=== PATIENT | male | born 1930 | race Caucasian/White ===

== ENCOUNTER 2019-07-10 23:01 | Emergency (ER) | payer MEDICARE, OTHER ==
[2019-07-10 23:15] VITALS: BP 161/90; PULSE 76
--- NOTE | 2019-07-10 23:15 | EDM.PDOC ---
ED HPI GENERAL MEDICAL PROBLEM - General Chief Complaint: Cardiovascular Problem Stated Complaint: CHEST PAIN Time Seen by Provider: 07/10/19 23:07 Source of Information: Reports: Patient, EMS, Old Records History Limitations: Reports: No Limitations - History of Present Illness INITIAL COMMENTS - FREE TEXT/NARRATIVE: Bony comes into [facility] ED by EMS with a recent 2 hour hx of lower retrosternal chest pain just before 8:00 pm, while sitting in a chair. Pain was sharp, with some radiation overlying the L anterior chest, associated with some diaphoresis and SOB. There was no dizziness, cough, wheezing, palpitations, or nausea. There was some heartburn and gas, although he did not try to belch. EMS was summoned by his sister, and he was pain free by the time EMS arrived. He remains sxs free in the ED. - Related Data Allergies Allergy/AdvReac Type Severity Reaction Status Date / Time No Known Allergies Allergy Verified 07/10/19 23:11 Home Meds: Home Meds Aspirin [Adult Low Dose Aspirin EC] 81 mg PO DAILY 07/31/13 [History] Finasteride [Proscar] 5 mg PO DAILY 07/31/13 [History] Levothyroxine 200 mcg PO ACBRK 07/31/13 [History] Isosorbide Mononitrate [Imdur] 30 mg PO DAILY #30 tab.er 10/19/14 [Rx] Carboxymethylcellulose Sodium [Refresh Liquigel 1%] 1 drop EYEBOTH BEDTIME 11/12 [History] Carboxymethylcellulose Sodium [Refresh Tears 0.5%] 1 drop EYEBOTH 6X [History] Clopidogrel [Plavix] 75 mg PO DAILY 11/12/14 [History] Metoprolol Tartrate 25 mg PO BEDTIME 11/12/14 [History] Metoprolol Tartrate 50 mg PO DAILY 11/12/14 [History] ED ROS GENERAL - Review of Systems Review Of Systems: See Below Constitutional: Reports: No Symptoms HEENT: Reports: No Symptoms Respiratory: Reports: No Symptoms Cardiovascular: Reports: Chest Pain Endocrine: Reports: No Symptoms GI/Abdominal: Reports: Other (heartburn, gassy feeling) : Reports: No Symptoms Musculoskeletal: Reports: No Symptoms Skin: Reports: No Symptoms Neurological: Reports: No Symptoms Psychiatric: Reports: No Symptoms Hematologic/Lymphatic: Reports: No Symptoms Immunologic: Reports: No Symptoms ED EXAM, GENERAL - Physical Exam Exam: See Below Exam Limited By: No Limitations General Appearance: Alert, WD/WN, No Apparent Distress Eye Exam: Bilateral Eye: EOMI, Normal Inspection, PERRL Ears: Normal External Exam Nose: Normal Inspection Throat/Mouth: Normal Inspection, Normal Oropharynx Head: Normocephalic Neck: Normal Inspection, Non-Tender Respiratory/Chest: Lungs Clear, No Accessory Muscle Use Cardiovascular: Regular Rate, Rhythm, No Murmur Peripheral Pulses: 3+: Dorsalis Pedis (R) GI/Abdominal: Normal Bowel Sounds, Soft, Non-Tender, No Organomegaly, No Distention, No Mass (Male) Exam: Deferred Rectal (Males) Exam: Deferred Back Exam: Normal Inspection Extremities: Normal Inspection Neurological: Alert, Oriented, CN II-XII Intact, No Motor/Sensory Deficits Psychiatric: Normal Affect, Normal Mood Skin Exam: Warm, Dry, Intact, Normal Color, No Rash Lymphatic: No Adenopathy Course - Vital Signs Text/Narrative:: Bony remained stable in the ED awaiting results of tests. The ekg, cbc, cmp, and troponin I were all baseline. A digestive condition such as GERD is suspected. Last Recorded V/S: Last Vital Signs Temp 35.9 C 07/10/19 23:01 Pulse 76 07/10/19 23:01 Resp 18 07/10/19 23:01 BP 161/90 H 07/10/19 23:01 Pulse Ox 93 L 07/10/19 23:01 - Orders/Labs/Meds Orders: Active Orders 24 hr Category Date Time Status EKG Documentation Completion [RC] ASDIRECTED Care 07/10/19 23:21 Active EKG 12 Lead [EK] Routine Ther 07/10/19 23:20 Ordered Labs: Laboratory Tests 07/10/19 07/10/19 07/10/19 Range/Units 23:25 23:25 23:25 WBC 7.8 (4.5-12.0) X10-3/uL RBC 4.30 (4.30-5.75) x10(6)uL Hgb 13.4 L (13.5-17.8) g/dL Hct 38.6 (30.0-51.3) % MCV 89.9 (80-96) fL MCH 31.2 (27.7-33.6) pg MCHC 34.7 (32.2-35.4) g/dL RDW 12.2 (11.5-15.5) % Plt Count 202 (125-369) X10(3)uL MPV 8.4 (7.4-10.4) fL Neut % (Auto) 68.9 (46-82) % Lymph % (Auto) 18.4 (13-37) % [place] % (Auto) 10.0 (4-12) % Eos % (Auto) 2 (1.0-5.0) % Baso % (Auto) 1 (0-2) % Neut # (Auto) 5.4 (1.6-8.3) # Lymph # (Auto) 1.4 (0.6-5.0) # [place] # (Auto) 0.8 (0.0-1.3) # Eos # (Auto) 0.2 (0.0-0.8) # Baso # (Auto) 0.0 (0.0-0.2) # D-Dimer, Quantitative 0.38 (0.0-0.59) mg/LFEU Sodium 135 (135-145) mmol/L Potassium 4.2 (3.5-5.3) mmol/L Chloride 97 L (100-110) mmol/L Carbon Dioxide 28 (21-32) mmol/L BUN 26 H (7-18) mg/dL Creatinine 1.4 H (0.70-1.30) mg/dL Est Cr Clr Drug Dosing 35.96 mL/min Estimated GFR (MDRD) 48 L (>60) BUN/Creatinine Ratio 18.6 (9-20) Glucose 152 H (80-116) mg/dL Calcium 9.1 (8.6-10.2) mg/dL Total Bilirubin 0.3 (0.1-1.3) mg/dL AST 17 (5-25) IU/L ALT 22 (12-36) U/L Alkaline Phosphatase 76 (56-112) IU/L Troponin I (<0.017-0.056) ng/mL Total Protein 7.0 (6.0-8.0) g/dL Albumin 3.7 (3.2-4.6) g/dL Globulin 3.3 g/dL Albumin/Globulin Ratio 1.1 09/10/19 Range/Units 23:25 WBC (4.5-12.0) X10-3/uL RBC (4.30-5.75) x10(6)uL Hgb (13.5-17.8) g/dL Hct (30.0-51.3) % MCV (80-96) fL MCH (27.7-33.6) pg MCHC (32.2-35.4) g/dL RDW (11.5-15.5) % Plt Count (125-369) X10(3)uL MPV (7.4-10.4) fL Neut % (Auto) (46-82) % Lymph % (Auto) (13-37) % [place] % (Auto) (4-12) % Eos % (Auto) (1.0-5.0) % Baso % (Auto) (0-2) % Neut # (Auto) (1.6-8.3) # Lymph # (Auto) (0.6-5.0) # [place] # (Auto) (0.0-1.3) # Eos # (Auto) (0.0-0.8) # Baso # (Auto) (0.0-0.2) # D-Dimer, Quantitative (0.0-0.59) mg/LFEU Sodium (135-145) mmol/L Potassium (3.5-5.3) mmol/L Chloride (100-110) mmol/L Carbon Dioxide (21-32) mmol/L BUN (7-18) mg/dL Creatinine (0.70-1.30) mg/dL Est Cr Clr Drug Dosing mL/min Estimated GFR (MDRD) (>60) BUN/Creatinine Ratio (9-20) Glucose (80-116) mg/dL Calcium (8.6-10.2) mg/dL Total Bilirubin (0.1-1.3) mg/dL AST (5-25) IU/L ALT (12-36) U/L Alkaline Phosphatase (56-112) IU/L Troponin I < 0.017 L (<0.017-0.056) ng/mL Total Protein (6.0-8.0) g/dL Albumin (3.2-4.6) g/dL Globulin g/dL Albumin/Globulin Ratio Departure - Departure Time of Disposition: 00:06 Disposition: Home, Self-Care 01 Condition: Good Clinical Impression: GERD (gastroesophageal reflux disease) Forms: ED Department Discharge - Problem List & Annotations (1) GERD (gastroesophageal reflux disease) SNOMED Code(s): 542202098 Code(s): K21.9 - GASTRO-ESOPHAGEAL REFLUX DISEASE WITHOUT ESOPHAGITIS Status: Acute Current Visit: Yes Annotation/Comment:: Continue Pepcid bid and maintenance meds. Qualifiers: Esophagitis presence: without esophagitis Qualified Code(s): K21.9 - Gastro -esophageal reflux disease without esophagitis - Problem List Review Problem List Initiated/Reviewed/Updated: Yes - My Orders Last 24 Hours: My Active Orders 07/10/19 23:20 EKG 12 Lead [EK] Routine 07/10/19 23:21 EKG Documentation Completion [RC] ASDIRECTED - Assessment/Plan Last 24 Hours: My Active Orders 07/10/19 23:20 EKG 12 Lead [EK] Routine 07/10/19 23:21 EKG Documentation Completion [RC] ASDIRECTED Plan: Follow up with PCP.
== END 2019-07-11 00:35 | disposition home or self-care (01) ==
LOC: FB.ED 23:01
DX: K21.9 Gastro-esophageal reflux disease without esophagitis (principal); Z79.82 Long term (current) use of aspirin; Z79.899 Other long term (current) drug therapy
CPT/HCPCS: 36415; 80053; 84484; 85025; 85379; 93005; 99285-25

== ENCOUNTER 2019-07-16 20:32 | Emergency (ER) | payer MEDICARE, OTHER ==
--- NOTE | 2019-07-16 23:13 | EDM.PDOC ---
ED HPI GENERAL MEDICAL PROBLEM - General Stated Complaint: VOMITING Time Seen by Provider: 07/16/19 21:00 Source of Information: Reports: Patient, Family History Limitations: Reports: Physical Impairment (Cognitive impairment with short-term memory deficit) - History of Present Illness INITIAL COMMENTS - FREE TEXT/NARRATIVE: patient sent over from assisted living after an observed episode of sudden onset abdominal pain, feeling and appearing chilled, clammy, and followed by vomiting. He had a similar episode 3 days ago, and was seen in clinic the day after and started on medication for GERD. Most of the history is obtained from daughter in law, as patient has some short term memory deficit. His symptoms are all completely resolved shortly after the episode, and he is feeling fine now with no complaints. He has a significant history of CVD, but never complained of any chest pain, shortness of breath, or associated symptoms. Family has noted he seems to be belching more lately, but otherwise acting his normal self. They have not tried anything else, and he has had a normal appetite and no significant changes in bowel habits are reported. - Related Data Allergies Allergy/AdvReac Type Severity Reaction Status Date / Time No Known Allergies Allergy Verified 07/10/19 23:11 Home Meds: Home Meds RX: Aspirin [Adult Low Dose Aspirin EC] 81 mg PO DAILY 07/31/13 [History] RX: Finasteride [Proscar] 5 mg PO DAILY 07/31/13 [History] RX: Levothyroxine 200 mcg PO ACBRK 07/31/13 [History] RX: Isosorbide Mononitrate [Imdur] 30 mg PO DAILY #30 tab.er 10/19/14 [Rx] RX: Carboxymethylcellulose Sodium [Refresh Liquigel 1%] 1 drop EYEBOTH BEDTIME 11/12/14 [History] RX: Carboxymethylcellulose Sodium [Refresh Tears 0.5%] 1 drop EYEBOTH 6X [History] RX: Clopidogrel [Plavix] 75 mg PO DAILY 11/12/14 [History] RX: Metoprolol Tartrate 25 mg PO BEDTIME 11/12/14 [History] RX: Metoprolol Tartrate 50 mg PO DAILY 11/12/14 [History] Past Medical History HEENT History: Reports: Other (See Below) Other HEENT History: entropian OS, fuchs corneal dystrophy, filamentary keratosis OU, meibomian gland dysfunction Cardiovascular History: Reports: Angina, Bypass, CAD, High Cholesterol, Hypertension, Other (See Below) Other Cardiovascular History: claudication Genitourinary History: Reports: BPH Musculoskeletal History: Reports: Other (See Below) Other Musculoskeletal History: sacro-iliac strain Neurological History: Reports: Other (See Below) Other Neuro History: claudication Psychiatric History: Reports: Dementia Endocrine/Metabolic History: Reports: Hypothyroidism, Obesity/BMI 30+ Oncologic (Cancer) History: Reports: Malignant Melanoma Dermatologic History: Reports: Other (See Below) Other Dermatologic History: h/o pressure ulcer to buttock - Past Surgical History HEENT Surgical History: Reports: Other (See Below) Other HEENT Surgeries/Procedures: blepharoplasty Cardiovascular Surgical History: Reports: Coronary Artery Bypass Social & Family History - Family History Family Medical History: Noncontributory - Tobacco Use Smoking Status *Q: Former Smoker - Caffeine Use Caffeine Use: Reports: Coffee, Soda - Alcohol Use Alcohol Use History: No - Recreational Drug Use Recreational Drug Use: No - Living Situation & Occupation Living situation: Reports: Assisted Living Occupation: Retired ED ROS GENERAL - Review of Systems Review Of Systems: ROS reveals no pertinent complaints other than HPI. ED EXAM, GENERAL - Physical Exam Exam: See Below Free Text/Narrative:: Gen.: Alert, pleasant no acute distress. Tympanic membranes are clear bilaterally with normal light reflex and throat is without erythema, mucous members are moist there is no tonsillar enlargement or exudates. Neck is supple and there is no cervical lymphadenopathy. Head is atraumatic without any signs of falls, bruises or bumps. Lungs are clear throughout with no wheezes or crackles and heart is regular rate and rhythm. Abdomen positive bowel sounds, soft nondistended nontender with no rebound or guarding and no discomfort whatsoever upon palpation. Peripheral pulses are +2 in the upper and lower extremities and there is no lower extremity edema. Neurologic exam shows pupils are equal and reactive, facial muscles are symmetric, muscular strength is equal side to side in both the upper and lower extremities. 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 Remote memory seems to be intact and his speech is clear and fluent. No pronator drift. Course - Vital Signs Text/Narrative:: Patient presenting after episode of feeling cold, clammy and complaining of abdominal pain. Significant cardiovascular history. He had a similar incident yesterday as well. At this point he seems to be back to his baseline and has no complaints or concerns whatsoever. [id number] is present at the bedside. Labs ordered, EKG reviewed and does not show any signs of acute ischemia - Orders/Labs/Meds Labs: Laboratory Tests 07/16/19 07/16/19 07/16/19 Range/Units 21:04 21:04 21:04 WBC 8.3 (4.5-12.0) X10-3/uL RBC 4.58 (4.30-5.75) x10(6)uL Hgb 13.6 (13.5-17.8) g/dL Hct 41.5 (30.0-51.3) % MCV 90.6 (80-96) fL MCH 29.6 (27.7-33.6) pg MCHC 32.7 (32.2-35.4) g/dL RDW 12.1 (11.5-15.5) % Plt Count 209 (125-369) X10(3)uL MPV 8.3 (7.4-10.4) fL Neut % (Auto) 79.3 (46-82) % Lymph % (Auto) 13.1 (13-37) % [place] % (Auto) 6.0 (4-12) % Eos % (Auto) 1 (1.0-5.0) % Baso % (Auto) 0 (0-2) % Neut # (Auto) 6.6 (1.6-8.3) # Lymph # (Auto) 1.1 (0.6-5.0) # [place] # (Auto) 0.5 (0.0-1.3) # Eos # (Auto) 0.1 (0.0-0.8) # Baso # (Auto) 0.0 (0.0-0.2) # Sodium 134 L (135-145) mmol/L Potassium 4.0 (3.5-5.3) mmol/L Chloride 97 L (100-110) mmol/L Carbon Dioxide 26 (21-32) mmol/L BUN 20 H (7-18) mg/dL Creatinine 1.2 (0.70-1.30) mg/dL Est Cr Clr Drug Dosing TNP Estimated GFR (MDRD) 57 L (>60) BUN/Creatinine Ratio 16.7 (9-20) Glucose 170 H (80-116) mg/dL Calcium 9.3 (8.6-10.2) mg/dL Total Bilirubin 0.3 (0.1-1.3) mg/dL AST 18 (5-25) IU/L ALT 21 (12-36) U/L Alkaline Phosphatase 74 (56-112) IU/L Troponin I < 0.017 L (<0.017-0.056) ng/mL Total Protein 7.3 (6.0-8.0) g/dL Albumin 3.9 (3.2-4.6) g/dL Globulin 3.4 g/dL Albumin/Globulin Ratio 1.2 Amylase 159 H (25-115) U/L - Re-Assessments/Exams Free Text/Narrative Re-Assessment/Exam: Labs reviewed, troponin is negative which would not necessarily reflect an incident immediate to arrival but does reflect the incident yesterday having not caused any acute ischemia. Patient is still feeling very normal and would like something to eat. Discussed with him and accompanying family member possible courses of action. They would really like him to be back in his normal environment at night if possible, and are most interested in discharging if everything checks out. We'll see if the patient can tolerate by mouth Free Text/Narrative Re-Assessment/Exam: Patient tolerating by mouth and has remained asymptomatic while here. He has not had any further episodes of any vomiting or belching, and he has never complained of any chest pain, shortness of breath, substernal chest pressure, pain radiating to his arm or jaw, and does not have any sort of cough. We'll discharge back to assisted living/memory care facility. Departure - Departure Time of Disposition: 23:12 Disposition: Home, Self-Care 01 Condition: Good Clinical Impression: GERD (gastroesophageal reflux disease) - Discharge Information *PRESCRIPTION DRUG MONITORING PROGRAM REVIEWED*: Not Applicable *COPY OF PRESCRIPTION DRUG MONITORING REPORT IN PATIENT ADOLPH: Not Applicable Referrals: Rajat Nava MD [Primary Care Provider] - Forms: ED Department Discharge Additional Instructions: uncertain what is causing his symptoms, followup with PCP return to ER if worsening or other concerns
[2019-07-19 08:02] VITALS: BP 111/76; PULSE 65
== END 2019-07-16 23:30 | disposition home or self-care (01) ==
LOC: FB.ED 20:32
DX: K21.9 Gastro-esophageal reflux disease without esophagitis (principal); C43.9 Malignant melanoma of skin, unspecified; I10 Essential (primary) hypertension; E78.00 Pure hypercholesterolemia, unspecified; E03.9 Hypothyroidism, unspecified; Z87.891 Personal history of nicotine dependence; Z86.73 Personal history of transient ischemic attack (TIA), and cerebral infarction without residual deficits; Z79.899 Other long term (current) drug therapy
CPT/HCPCS: 36415; 80053; 82150; 84484; 85025; 99283

== ENCOUNTER 2019-07-21 01:40 | Inpatient (IN) | payer MEDICARE, OTHER ==
[2019-07-21] MEDS ORDERED: Ondansetron 8 MG Tab.DIS PO ONE (02:52)
[2019-07-21] MEDS ORDERED: Alum Hydroxide/Mag Hydroxide 15 ML, Lidocaine 2% 15 ML PO STA ×2 (02:52)
--- NOTE | 2019-07-21 02:54 | EDM.PDOC ---
ED HPI GENERAL MEDICAL PROBLEM - General Chief Complaint: Gastrointestinal Problem Stated Complaint: SICK Time Seen by Provider: 07/21/19 02:37 Source of Information: Reports: Patient, Family History Limitations: Reports: Other - History of Present Illness INITIAL COMMENTS - FREE TEXT/NARRATIVE: 88 y.o.w.m with a h/o HTN, Dementia and GERD, came with Family from the [place] to the ed due to N/V and epigastric pain, off/onn which is a chronic med issue. Pt is not able to give a HPI. It appears, the main issue is Pt's epigastric pain, which the longterm could not control this AM. Pt ate supper and was nauseated and spitting up since last night. family was called who brought the Pt to the ED BP 186/85 RR 14 Pulse ox 94% on RA Pulse 80 Temp 36.8 Onset Date: 07/06/19 Onset Time: 06:00 Duration: Intermittent Location: Reports: Abdomen Quality: Reports: Burning, Dull, Same as Previous Episode Severity: Moderate Improves with: Reports: None Worsens with: Reports: None Context: Reports: Other (GEARD) Associated Symptoms: Reports: Other (H/O Dementia) epigastric Pain Score (Numeric/FACES): 5 - Related Data Allergies Allergy/AdvReac Type Severity Reaction Status Date / Time No Known Allergies Allergy Verified 07/19/19 08:03 Home Meds: Home Meds Aspirin [Adult Low Dose Aspirin EC] 81 mg PO DAILY 07/31/13 [History] Finasteride [Proscar] 5 mg PO DAILY 07/31/13 [History] Carboxymethylcellulose Sodium [Refresh Liquigel 1%] 1 drop EYEBOTH BEDTIME 11/12 [History] Carboxymethylcellulose Sodium [Refresh Tears 0.5%] 1 drop EYEBOTH Q3H 11/12/14 [ History] Acetaminophen [Tylenol] 650 mg PO Q4H PRN 07/19/19 [History] Diclofenac Sodium [Voltaren] 75 mg PO BID PRN 07/19/19 [History] Donepezil HCl 10 mg PO DAILY 07/19/19 [History] Isosorbide Mononitrate [Imdur] 60 mg PO DAILY 07/19/19 [History] Levothyroxine 150 mcg PO ACBREAKFAST 07/19/19 [History] Lisinopril 10 mg PO BEDTIME 07/19/19 [History] Metoprolol Tartrate 50 mg PO BID 07/19/19 [History] Nitroglycerin [Nitrostat] 0.4 mg SL ASDIRECTED PRN 07/19/19 [History] Sennosides/Docusate Sodium [Senna-S] 1 each PO DAILY PRN 07/19/19 [History] Sennosides/Docusate Sodium [Senokot-S Tablet] 1 each PO DAILY 07/19/19 [History] atorvaSTATin [Lipitor] 10 mg PO DAILY 07/19/19 [History] dexAMETHasone [Decadron 0.1% Ophth Soln] 1 drop EYEBOTH DAILY 07/19/19 [History] Omeprazole 20 mg PO DAILY 07/21/19 [History] Past Medical History HEENT History: Reports: Other (See Below) Other HEENT History: entropian OS, fuchs corneal dystrophy, filamentary keratosis OU, meibomian gland dysfunction Cardiovascular History: Reports: Angina, Bypass, CAD, High Cholesterol, Hypertension, Other (See Below) Other Cardiovascular History: claudication Genitourinary History: Reports: BPH Musculoskeletal History: Reports: Other (See Below) Other Musculoskeletal History: sacro-iliac strain Neurological History: Reports: Other (See Below) Other Neuro History: claudication Psychiatric History: Reports: Dementia Endocrine/Metabolic History: Reports: Hypothyroidism, Obesity/BMI 30+ Oncologic (Cancer) History: Reports: Malignant Melanoma Dermatologic History: Reports: Other (See Below) Other Dermatologic History: h/o pressure ulcer to buttock - Past Surgical History HEENT Surgical History: Reports: Other (See Below) Other HEENT Surgeries/Procedures: blepharoplasty Cardiovascular Surgical History: Reports: Coronary Artery Bypass Social & Family History - Family History Family Medical History: Noncontributory - Caffeine Use Caffeine Use: Reports: Coffee, Soda ED ROS GENERAL - Review of Systems Review Of Systems: Unable To Obtain ED EXAM, GI/ABD - Physical Exam Exam: See Below Exam Limited By: Other (Dementia) General Appearance: Alert, WD/WN, Obese Eyes: Bilateral: Normal Appearance Ears: Normal External Exam Nose: Normal Inspection Throat/Mouth: Normal Lips, Normal Voice, No Airway Compromise Head: Atraumatic, Normocephalic Neck: Normal Inspection, Supple, Non-Tender, Full Range of Motion Respiratory/Chest: No Respiratory Distress, Lungs Clear Cardiovascular: Normal Peripheral Pulses, Regular Rate, Rhythm, No Edema GI/Abdominal Exam: Tender (epigastric) (Male) Exam: Deferred Rectal (Males) Exam: Deferred Back Exam: Normal Inspection, Full Range of Motion Extremities: Normal Inspection, Normal Range of Motion, Non-Tender Neurological: Alert, CN II-XII Intact, Other (H/o Dementia) Psychiatric: Normal Affect Skin Exam: Warm, Dry, Intact, Normal Color Lymphatic: No Adenopathy EKG INTERPRETATION EKG Date: 07/21/19 Time: 04:45 Rhythm: NSR Rate (Beats/Min): 87 [place]: Normal P-Wave: Present QRS: Normal ST-T: Normal QT: Normal Comparison: NA - No Prior EKG Course - Vital Signs Text/Narrative:: 88 y.o.w.m with a h/o HTN, Dementia and GERD, came [place] Family [place] the [place] to the ed due to N/V and epigastric pain, off/onn which is a chronic med issue. Pt is not able to give a HPI. It appears, the main issue is Pt's epigastric pain, which the longterm could not control this AM. Pt ate supper and was nauseated and spitting up since last night. family was called who brought the Pt to the ED BP 186/85 RR 14 Pulse ox 94% on RA Pulse 80 Temp 36.8 PE: WNWD W M with dementia, spitting up off/on and epigastric pain Imaging: Not indicated Labs: pending Impression: Epigastric Tenderness, HTN Tx: Zofran, GI Cocktail, Clonidine Reexam: Pt's symptoms improved initially but then BP got worse and the pt was spitting up again. Family member needed to go to work. Plan: Admit to OBS Last Recorded V/S: Last Vital Signs Temp 36.8 C 07/22/19 08:00 Pulse 76 07/22/19 08:25 Resp 19 07/22/19 08:00 BP 140/88 07/22/19 08:25 Pulse Ox 92 L 07/22/19 08:00 - Orders/Labs/Meds Orders: Medication Orders Artificial Tears (Refresh Liquigel 1%) 0 ml EYEBOTH BEDTIME PATTI Last Admin: 07/21/19 20:53 Dose: 1 drop Artificial Tears (Refresh Tears 0.5%) 0 ml EYEBOTH Q3H [facility] Last Admin: 07/22/19 08:27 Dose: 1 drop Admin: 07/22/19 03:12 Dose: Not Given Admin: 07/22/19 00:06 Dose: 1 drop Admin: 07/21/19 20:53 Dose: 1 drop Admin: 07/21/19 18:45 Dose: 1 drop Admin: 07/21/19 16:09 Dose: 1 drop Admin: 07/21/19 12:03 Dose: 1 drop Dexamethasone (Decadron 0.1% Ophth Soln) 0 ml EYEBOTH DAILY [facility] Last Admin: 07/22/19 08:31 Dose: 1 drop Admin: 07/21/19 12:02 Dose: 1 drop Donepezil HCl (Aricept) 10 mg PO BEDTIME [facility] Last Admin: 07/21/19 20:51 Dose: 10 mg Finasteride (Proscar) 5 mg PO DAILY [facility] Last Admin: 07/22/19 08:27 Dose: 5 mg Admin: 07/21/19 12:03 Dose: 5 mg Sodium Chloride (Normal Saline) 1,000 mls @ 75 mls/hr IV ASDIRECTED [facility] Last Admin: 07/22/19 00:00 Dose: 75 mls/hr Infusion: 07/21/19 23:42 Dose: 75 mls/hr Admin: 07/21/19 10:22 Dose: 75 mls/hr Lisinopril (Prinivil) 10 mg PO BEDTIME [facility] Last Admin: 07/21/19 20:52 Dose: 10 mg Metoprolol Tartrate (Lopressor) 50 mg PO BID [facility] Last Admin: 07/22/19 08:25 Dose: 50 mg Admin: 07/21/19 20:51 Dose: 50 mg Admin: 07/21/19 12:03 Dose: 50 mg Pantoprazole Sodium (Protonix Iv) 40 mg IVPUSH DAILY [facility] Last Admin: 07/22/19 08:12 Dose: 40 mg Admin: 07/21/19 10:22 Dose: 40 mg Promethazine HCl (Phenergan) 25 mg PO Q6H PRN PRN Reason: nausea, able to take PO Last Admin: 07/21/19 09:47 Dose: 25 mg Sodium Chloride (Saline Flush) 10 ml FLUSH ASDIRECTED PRN PRN Reason: Keep Vein Open Last Admin: 07/21/19 08:52 Dose: 10 ml Sucralfate (Carafate) 1 gm PO QIDACANDBED PATTI Last Admin: 07/22/19 08:11 Dose: 1 gm Admin: 07/21/19 21:01 Dose: 1 gm Admin: 07/21/19 17:21 Dose: 1 gm Admin: 07/21/19 12:02 Dose: 1 gm Meds: Medications Generic Name Dose Route Start Last Admin Trade Name Freq PRN Reason Stop Dose Admin Artificial Tears 0 ml 07/21/19 21:00 07/21/19 20:53 Refresh Liquigel 1% EYEBOTH 1 drop BEDTIME PATTI Administration Artificial Tears 0 ml 07/21/19 12:00 07/22/19 08:27 Refresh Tears 0.5% EYEBOTH 1 drop Q3H PATTI Administration Dexamethasone 0 ml 07/21/19 11:45 07/22/19 08:31 Decadron 0.1% Ophth Soln EYEBOTH 1 drop DAILY PATTI Administration Donepezil HCl 10 mg 07/21/19 21:00 07/21/19 20:51 Aricept PO 10 mg BEDTIME PATTI Administration Finasteride 5 mg 07/21/19 11:45 07/22/19 08:27 Proscar PO 5 mg DAILY PATTI Administration Sodium Chloride 1,000 mls @ 75 mls/hr 07/21/19 09:00 07/22/19 00:00 Normal Saline IV 75 mls/hr ASDIRECTED PATTI Administration Lisinopril 10 mg 07/21/19 21:00 07/21/19 20:52 Prinivil PO 10 mg BEDTIME PATTI Administration Metoprolol Tartrate 50 mg 07/21/19 11:45 07/22/19 08:25 Lopressor PO 50 mg BID PATTI Administration Pantoprazole Sodium 40 mg 07/21/19 09:00 07/22/19 08:12 Protonix Iv IVPUSH 40 mg DAILY PATTI Administration Promethazine HCl 25 mg 07/21/19 04:58 07/21/19 09:47 Phenergan PO 25 mg Q6H PRN Administration nausea, able to take PO Sodium Chloride 10 ml 07/21/19 04:58 07/21/19 08:52 Saline Flush FLUSH 10 ml ASDIRECTED PRN Administration Keep Vein Open Sucralfate 1 gm 07/21/19 11:30 07/22/19 08:11 Carafate PO 1 gm QIDACANDBED PATTI Administration Discontinued Medications Generic Name Dose Route Start Last Admin Trade Name Freq PRN Reason Stop Dose Admin Clonidine HCl 0.1 mg 07/21/19 04:12 07/21/19 04:16 Catapres PO 07/21/19 04:13 0.1 mg ONETIME ONE Administration Al Hydroxide/Mg Hydroxide 15 0 ml 07/21/19 02:52 07/21/19 03:18 ml/ Lidocaine HCl 15 ml PO 07/21/19 02:53 15 ml ONETIME STA Administration Iopamidol 94 ml 07/21/19 12:20 07/21/19 12:42 Isovue-370 (76%) IV 07/21/19 12:21 94 ml . DIRECTED ONE Administration Lidocaine HCl 6 ml 07/22/19 09:31 07/22/19 09:57 Glydo .XX 07/22/19 09:32 6 ml ONETIME STA Administration Metoclopramide HCl 10 mg 07/21/19 06:24 07/21/19 06:33 Reglan IVPUSH 07/21/19 06:25 10 mg ONETIME ONE Administration Ondansetron HCl 8 mg 07/21/19 02:52 07/21/19 03:17 Zofran Odt PO 07/21/19 02:53 8 mg ONETIME ONE Administration Departure - Departure Time of Disposition: 05:58 Disposition: Refer to Observation Condition: Fair Clinical Impression: Nausea & vomiting Qualifiers: Vomiting Intractability: non-intractable - Discharge Information
[2019-07-21] MEDS ORDERED: cloNIDine 0.1 MG Tab PO ONE (04:12)
[2019-07-21] MEDS: Promethazine 25 MG Tab PO PRN ×2 (06:17→09:47)
[2019-07-21] MEDS ORDERED: Metoclopramide 10 MG/2 ML SDV IVPUSH ONE (06:24)
[2019-07-21] MEDS: Sodium Chloride 0.9% 10 ML Syringe FLUSH PRN (08:52)
--- NOTE | 2019-07-21 09:07 | PCM.HP.2 ---
H&P History of Present Illness - General Date of Service: 07/21/19 Admit Problem/Dx: Admission Diagnosis/Problem Admission Diagnosis/Problem Gastric reflux Source of Information: Patient, Family History Limitations: Reports: Other (Dementia) - History of Present Illness Initial Comments - Free Text/Narative: Suhas is an 88-year-old male who presents with epigastric pain. This has gone on for 2 weeks. It is associated with vomiting, and no radiation. Has been seen at least twice or 3 times in the emergency room. Sharp pain. Most of this history is obtained from family and old records at the [facility]. Has been treated with a GI cocktail no relief. There is no associated constipation, chest pain or shortness of breath. Suhas has a history of hypertension, coronary artery disease, hypothyroidism, BPH stable. epigastric Pain Score (Numeric/FACES): 5 - Related Data Allergies/Adverse Reactions: Allergies Allergy/AdvReac Type Severity Reaction Status Date / Time No Known Allergies Allergy Verified 07/19/19 08:03 Home Medications: Home Meds Aspirin [Adult Low Dose Aspirin EC] 81 mg PO DAILY 07/31/13 [History] Finasteride [Proscar] 5 mg PO DAILY 07/31/13 [History] Carboxymethylcellulose Sodium [Refresh Liquigel 1%] 1 drop EYEBOTH BEDTIME 11/12 [History] Carboxymethylcellulose Sodium [Refresh Tears 0.5%] 1 drop EYEBOTH Q3H 11/12/14 [ History] Acetaminophen [Tylenol] 650 mg PO Q4H PRN 07/19/19 [History] Diclofenac Sodium [Voltaren] 75 mg PO BID PRN 07/19/19 [History] Donepezil HCl 10 mg PO DAILY 07/19/19 [History] Isosorbide Mononitrate [Imdur] 60 mg PO DAILY 07/19/19 [History] Levothyroxine 150 mcg PO ACBREAKFAST 07/19/19 [History] Lisinopril 10 mg PO BEDTIME 07/19/19 [History] Metoprolol Tartrate 50 mg PO BID 07/19/19 [History] Nitroglycerin [Nitrostat] 0.4 mg SL ASDIRECTED PRN 07/19/19 [History] Sennosides/Docusate Sodium [Senna-S] 1 each PO DAILY PRN 07/19/19 [History] Sennosides/Docusate Sodium [Senokot-S Tablet] 1 each PO DAILY 07/19/19 [History] atorvaSTATin [Lipitor] 10 mg PO DAILY 07/19/19 [History] dexAMETHasone [Decadron 0.1% Ophth Soln] 1 drop EYEBOTH DAILY 07/19/19 [History] Omeprazole 20 mg PO DAILY 07/21/19 [History] Past Medical History HEENT History: Reports: Other (See Below) Other HEENT History: entropian OS, fuchs corneal dystrophy, filamentary keratosis OU, meibomian gland dysfunction Cardiovascular History: Reports: Angina, Bypass, CAD, High Cholesterol, Hypertension, Other (See Below) Other Cardiovascular History: claudication Genitourinary History: Reports: BPH Musculoskeletal History: Reports: Other (See Below) Other Musculoskeletal History: sacro-iliac strain Neurological History: Reports: Other (See Below) Other Neuro History: claudication Psychiatric History: Reports: Dementia Endocrine/Metabolic History: Reports: Hypothyroidism, Obesity/BMI 30+ Oncologic (Cancer) History: Reports: Malignant Melanoma Dermatologic History: Reports: Other (See Below) Other Dermatologic History: h/o pressure ulcer to buttock - Past Surgical History HEENT Surgical History: Reports: Other (See Below) Other HEENT Surgeries/Procedures: blepharoplasty Cardiovascular Surgical History: Reports: Coronary Artery Bypass Social & Family History - Family History Family Medical History: Noncontributory - Tobacco Use Smoking Status *Q: Former Smoker Used Tobacco, but Quit: Yes Month/Year Tobacco Last Used: 1998 - Caffeine Use Caffeine Use: Reports: Coffee - Recreational Drug Use Recreational Drug Use: No H&P Review of Systems - Review of Systems: Review Of Systems: ROS reveals no pertinent complaints other than HPI. Exam - Exam Exam: See Below - Vital Signs Vital Signs: Last Vital Signs Temp 98.2 F 07/21/19 08:50 Pulse 102 H 07/21/19 08:50 Resp 18 07/21/19 08:50 BP 158/93 H 07/21/19 08:50 Pulse Ox 94 L 07/21/19 08:50 Weight: 83.28 kg - Exam General: Alert, Oriented, 4 HEENT: PERRLA, Hearing Intact, Mucosa Moist & [place], Nares Patent, Normal Nasal Septum, Posterior Pharynx Clear, Conjunctiva Clear, EOMI, EACs Clear, TMs Clear Neck: Supple, Trachea Midline, 2 Lungs: Clear to Auscultation, Normal Respiratory Effort Cardiovascular: Regular Rate, Regular Rhythm GI/Abdominal Exam: Normal Bowel Sounds, Soft, No Abnormal Bruit, Tender. No: Rigid, Rebound, Hepatomegaly, Splenomegaly (Male) Exam: No Hernia Rectal (Males) Exam: Deferred Back Exam: Normal Inspection, Full Range of Motion, NT Extremities: Normal Inspection, Normal Range of Motion, Non-Tender, No Pedal Edema, Normal Capillary Refill Skin: Warm, Dry, Intact Neurological: Cranial Nerves Intact, Reflexes Equal Bilateral Neuro Extensive - Mental Status: Alert Neuro Extensive - Motor, Sensory, Reflexes: CN II-XII Intact, Normal Gait, Normal Reflexes Psychiatric: Alert, Normal Affect, Normal Mood - Patient Data Lab Results Last 24 hrs: Laboratory Results - last 24 hr 07/21/19 07/21/19 07/21/19 Range/Units 05:17 05:17 05:17 WBC 13.1 H (4.5-12.0) X10-3/uL RBC 4.83 (4.30-5.75) x10(6)uL Hgb 14.6 (13.5-17.8) g/dL Hct 43.2 (30.0-51.3) % MCV 89.5 (80-96) fL MCH 30.3 (27.7-33.6) pg MCHC 33.9 (32.2-35.4) g/dL RDW 12.4 (11.5-15.5) % Plt Count 215 (125-369) X10(3)uL MPV 8.4 (7.4-10.4) fL Add Manual Diff Yes Neutrophils % (Manual) 94 H (46-82) % Lymphocytes % (Manual) 4 L (13-37) % Monocytes % (Manual) 2 L (4-12) % Sodium 133 L (135-145) mmol/L Potassium 4.1 (3.5-5.3) mmol/L Chloride 93 L (100-110) mmol/L Carbon Dioxide 26 (21-32) mmol/L BUN 20 H (7-18) mg/dL Creatinine 1.2 (0.70-1.30) mg/dL Est Cr Clr Drug Dosing 39.14 mL/min Estimated GFR (MDRD) 57 L (>60) BUN/Creatinine Ratio 16.7 (9-20) Glucose 177 H (80-116) mg/dL Calcium 9.6 (8.6-10.2) mg/dL Total Bilirubin 0.6 (0.1-1.3) mg/dL Direct Bilirubin 0.14 (0.10-0.20) mg/dL AST 20 D (5-25) IU/L ALT 23 (12-36) U/L Alkaline Phosphatase 77 (56-112) IU/L Troponin I 0.061 H (<0.017-0.056) ng/mL Total Protein 7.7 (6.0-8.0) g/dL Albumin 4.3 (3.2-4.6) g/dL Lipase 441 H (73-393) U/L Result Diagrams: 07/21/19 05:17 07/21/19 05:17 EKG INTERPRETATION EKG Date: 07/20/19 Rhythm: NSR Comparison: NA - No Prior EKG - Problem List (1) Acute pancreatitis SNOMED Code(s): 107895698 ICD Code: K85.90 - ACUTE PANCREATITIS WITHOUT NECROSIS OR INFECTION, UNSP Status: Acute Current Visit: Yes Qualifiers: Pancreatitis type: biliary (2) Gall stones SNOMED Code(s): 755367313 ICD Code: K80.20 - CALCULUS OF GALLBLADDER W/O CHOLECYSTITIS W/O OBSTRUCTION Status: Acute Current Visit: Yes (3) CAD (coronary artery disease) SNOMED Code(s): 59127426 ICD Code: I25.10 - ATHSCL HEART DISEASE OF [place] CORONARY ARTERY W/O ANG PCTRS Status: Chronic Current Visit: Yes Qualifiers: Associated angina: without angina (4) Dementia SNOMED Code(s): 89205866 ICD Code: F03.90 - UNSPECIFIED DEMENTIA WITHOUT BEHAVIORAL DISTURBANCE Status: Chronic Current Visit: Yes Qualifiers: Dementia type: Alzheimer's disease Dementia behavioral disturbance: without behavioral disturbance (5) GERD (gastroesophageal reflux disease) SNOMED Code(s): 968723804 ICD Code: K21.9 - GASTRO-ESOPHAGEAL REFLUX DISEASE WITHOUT ESOPHAGITIS Status: Acute Current Visit: No Problem Details: Continue Pepcid bid and maintenance meds. Qualifiers: Esophagitis presence: esophagitis presence not specified Qualified Code(s) : K21.9 - Gastro-esophageal reflux disease without esophagitis (6) Hypothyroidism SNOMED Code(s): 24445306 ICD Code: E03.9 - HYPOTHYROIDISM, UNSPECIFIED Status: Chronic Current Visit: No (7) Elevated troponin SNOMED Code(s): 623103955, 206417624, 856630365 ICD Code: R74.8 - ABNORMAL LEVELS OF OTHER SERUM ENZYMES Status: Acute Current Visit: Yes (8) HTN (hypertension) SNOMED Code(s): 48782859 ICD Code: I10 - ESSENTIAL (PRIMARY) HYPERTENSION Status: Chronic Current Visit: Yes Qualifiers: Hypertension type: essential hypertension Qualified Code(s): I10 - Essential (primary) hypertension (9) BPH (benign prostatic hyperplasia) SNOMED Code(s): 536900809 ICD Code: N40.0 - BENIGN PROSTATIC HYPERPLASIA WITHOUT LOWER URINRY TRACT SYMP Status: Chronic Current Visit: Yes Problem List Initiated/Reviewed/Updated: Yes Orders Last 24hrs: Active Orders 24 hr Category Date Time Status Patient Status [ADT] Routine ADT 07/21/19 04:58 Active Bedrest Bedside Commode [RC] ASDIRECTED Care 07/21/19 04:58 Active EKG Documentation Completion [RC] ASDIRECTED Care 07/21/19 04:12 Active Oxygen Therapy [RC] PRN Care 07/21/19 04:58 Active Vital Signs [RC] 08,12,16,20,00,04 Care 07/21/19 04:58 Active Nothing per Oral Now Diet [DIET] Diet 07/21/19 Breakfast Ordered Abdomen Pelvis w Cont [CT] Routine Exams 07/21/19 08:59 Ordered Carboxymethylcellulose Sodium [Refresh Liquigel 1%] Med 07/21/19 21:00 Ordered 1 drop EYEBOTH BEDTIME Carboxymethylcellulose Sodium [Refresh Tears 0.5%] Med 07/21/19 09:00 Ordered 1 drop EYEBOTH Q3H Promethazine [Phenergan] Med 07/21/19 04:58 Active 25 mg PO Q6H PRN Sodium Chloride 0.9% @ 75 MLS/HR(1000ml) Med 07/21/19 09:00 Ordered Sodium Chloride 0.9% [Normal Saline] 1,000 ml IV ASDIRECTED Sodium Chloride 0.9% [Saline Flush] Med 07/21/19 04:58 Active 10 ml FLUSH ASDIRECTED PRN dexAMETHasone [Decadron 0.1% Ophth Soln] Med 07/21/19 09:00 Ordered 1 drop EYEBOTH DAILY Peripheral IV Insertion Adult [OM.PC] Routine Oth 07/21/19 04:58 Ordered Resuscitation Status Routine Resus Stat 07/21/19 04:58 Ordered EKG 12 Lead [EK] Routine Ther 07/21/19 04:12 Ordered Medication Orders Artificial Tears (Refresh Liquigel 1%) ml EYEBOTH BEDTIME PATTI Artificial Tears (Refresh Tears 0.5%) ml EYEBOTH Q3H PATTI Dexamethasone (Decadron 0.1% Ophth Soln) ml EYEBOTH DAILY PATTI Sodium Chloride (Normal Saline) 1,000 mls @ 75 mls/hr IV ASDIRECTED PATTI Promethazine HCl (Phenergan) 25 mg PO Q6H PRN PRN Reason: nausea, able to take PO Sodium Chloride (Saline Flush) 10 ml FLUSH ASDIRECTED PRN PRN Reason: Keep Vein Open Last Admin: 07/21/19 08:52 Dose: 10 ml Assessment/Plan Comment:: I reviewed his last ultrasound that showed gallstones, and his lipase being elevated, of ordered for CT of the abdomen pelvis. I will start some IV fluid maintenance, and keep him nothing by mouth until the results of the CAT scan report. Consider surgical consultation after. - Mortality Measure Prognosis:: Good
[2019-07-21] MEDS: Pantoprazole 40 MG Vial IVPUSH SCH (10:22)
[2019-07-21] MEDS: Sodium Chloride 0.9% 1,000 ML IV SCH (10:22)
[2019-07-21] MEDS: Sucralfate Suspension 1 GM/10 ML Cup PO SCH ×3 (12:02→21:01)
[2019-07-21] MEDS: DEXAMETHASONE 0.1% EYEBOTH SCH (12:02)
[2019-07-21] MEDS: METOPROLOL TARTRATE 50 MG PO SCH ×2 (12:03→20:51)
[2019-07-21] MEDS: [UNRECOGNIZED DRUG - OTHER] EYEBOTH SCH ×4 (12:03→20:53)
[2019-07-21] MEDS: FINASTERIDE 5 MG PO SCH (12:03)
[2019-07-21] MEDS ORDERED: Iopamidol 755 Mg/ML 100 ML Bottle IV ONE (12:20)
[2019-07-21] MEDS: Donepezil 10 MG Tab PO SCH (20:51)
[2019-07-21] MEDS: [UNRECOGNIZED DRUG - OTHER] EYEBOTH SCH (20:53)
[2019-07-22] MEDS: [UNRECOGNIZED DRUG - OTHER] EYEBOTH SCH ×9 (00:06→20:05)
[2019-07-22] MEDS: Sucralfate Suspension 1 GM/10 ML Cup PO SCH ×4 (08:11→20:04)
[2019-07-22] MEDS: Pantoprazole 40 MG Vial IVPUSH SCH (08:12)
--- NOTE | 2019-07-22 08:23 | PCM.PN ---
- General Info Date of Service: 07/22/19 Subjective Update: Restless last night. Unable to eat much. CT showed diaphragmatic hernia. - Review of Systems General: Reports: No Symptoms HEENT: Reports: No Symptoms Pulmonary: Reports: Shortness of Breath Cardiovascular: Reports: No Symptoms Gastrointestinal: Reports: Abdominal Pain, Decreased Appetite Genitourinary: Reports: No Symptoms Musculoskeletal: Reports: No Symptoms - Patient Data Vitals - Most Recent: Last Vital Signs Temp 98.7 F 07/22/19 05:00 Pulse 73 07/22/19 05:00 Resp 18 07/22/19 05:00 BP 127/71 07/22/19 05:00 Pulse Ox 95 07/22/19 05:00 Weight - Most Recent: 83.28 kg Lab Results Last 24 Hours: Laboratory Results - last 24 hr 07/22/19 07/22/19 07/22/19 Range/Units 06:20 06:20 06:20 WBC 20.4 H (4.5-12.0) X10-3/uL RBC 4.71 (4.30-5.75) x10(6)uL Hgb 14.3 (13.5-17.8) g/dL Hct 42.2 (30.0-51.3) % MCV 89.6 (80-96) fL MCH 30.3 (27.7-33.6) pg MCHC 33.9 (32.2-35.4) g/dL RDW 12.4 (11.5-15.5) % Plt Count 209 (125-369) X10(3)uL MPV 8.3 (7.4-10.4) fL Add Manual Diff Yes Neutrophils % (Manual) 87 H (46-82) % Band Neutrophils % 1 (0-6) % Lymphocytes % (Manual) 2 L (13-37) % Monocytes % (Manual) 9 (4-12) % Metamyelocytes % 1 H (0-0) % Sodium 133 L (135-145) mmol/L Potassium 4.2 (3.5-5.3) mmol/L Chloride 98 L D (100-110) mmol/L Carbon Dioxide 27 (21-32) mmol/L BUN 17 (7-18) mg/dL Creatinine 1.0 (0.70-1.30) mg/dL Est Cr Clr Drug Dosing 46.96 mL/min Estimated GFR (MDRD) > 60 (>60) BUN/Creatinine Ratio 17.0 (9-20) Glucose 126 H (80-116) mg/dL Calcium 8.5 L (8.6-10.2) mg/dL Total Bilirubin 0.6 (0.1-1.3) mg/dL AST 56 H D (5-25) IU/L ALT 26 D (12-36) U/L Alkaline Phosphatase 70 (56-112) IU/L Total Protein 6.8 (6.0-8.0) g/dL Albumin 3.6 (3.2-4.6) g/dL Globulin 3.2 g/dL Albumin/Globulin Ratio 1.1 Lipase 403 H (73-393) U/L Med Orders - Current: Current Medications Artificial Tears (Refresh Liquigel 1%) 0 ml EYEBOTH BEDTIME [facility] Last Admin: 07/21/19 20:53 Dose: 1 drop Artificial Tears (Refresh Tears 0.5%) 0 ml EYEBOTH Q3H [facility] Last Admin: 07/22/19 03:12 Dose: Not Given Dexamethasone (Decadron 0.1% Ophth Soln) 0 ml EYEBOTH DAILY [facility] Last Admin: 07/21/19 12:02 Dose: 1 drop Donepezil HCl (Aricept) 10 mg PO BEDTIME [facility] Last Admin: 07/21/19 20:51 Dose: 10 mg Finasteride (Proscar) 5 mg PO DAILY [facility] Last Admin: 07/21/19 12:03 Dose: 5 mg Sodium Chloride (Normal Saline) 1,000 mls @ 75 mls/hr IV ASDIRECTED [facility] Last Admin: 07/22/19 00:00 Dose: 75 mls/hr Lisinopril (Prinivil) 10 mg PO BEDTIME [facility] Last Admin: 07/21/19 20:52 Dose: 10 mg Metoprolol Tartrate (Lopressor) 50 mg PO BID [facility] Last Admin: 07/21/19 20:51 Dose: 50 mg Pantoprazole Sodium (Protonix Iv) 40 mg IVPUSH DAILY [facility] Last Admin: 07/22/19 08:12 Dose: 40 mg Promethazine HCl (Phenergan) 25 mg PO Q6H PRN PRN Reason: nausea, able to take PO Last Admin: 07/21/19 09:47 Dose: 25 mg Sodium Chloride (Saline Flush) 10 ml FLUSH ASDIRECTED PRN PRN Reason: Keep Vein Open Last Admin: 07/21/19 08:52 Dose: 10 ml Sucralfate (Carafate) 1 gm PO QIDACANDBED [facility] Last Admin: 07/22/19 08:11 Dose: 1 gm Discontinued Medications Clonidine HCl (Catapres) 0.1 mg PO ONETIME ONE Stop: 07/21/19 04:13 Last Admin: 07/21/19 04:16 Dose: 0.1 mg Al Hydroxide/Mg Hydroxide 15 (ml/ Lidocaine HCl 15 ml) 0 ml PO ONETIME STA Stop: 07/21/19 02:53 Last Admin: 07/21/19 03:18 Dose: 15 ml Iopamidol (Isovue-370 (76%)) 94 ml IV . DIRECTED ONE Stop: 07/21/19 12:21 Last Admin: 07/21/19 12:42 Dose: 94 ml Metoclopramide HCl (Reglan) 10 mg IVPUSH ONETIME ONE Stop: 07/21/19 06:25 Last Admin: 07/21/19 06:33 Dose: 10 mg Ondansetron HCl (Zofran Odt) 8 mg PO ONETIME ONE Stop: 07/21/19 02:53 Last Admin: 07/21/19 03:17 Dose: 8 mg - Exam Quality Assessment: Supplemental Oxygen General: Alert HEENT: Pupils Equal Neck: Supple Lungs: Clear to Auscultation Cardiovascular: Regular Rate GI/Abdominal Exam: Soft, Non-Tender, No Organomegaly, Distended - Problem List & Annotations (1) Acute pancreatitis SNOMED Code(s): 421975772 Code(s): K85.90 - ACUTE PANCREATITIS WITHOUT NECROSIS OR INFECTION, UNSP Status: Acute Current Visit: Yes Qualifiers: Pancreatitis type: biliary (2) Gall stones SNOMED Code(s): 880280053 Code(s): K80.20 - CALCULUS OF GALLBLADDER W/O CHOLECYSTITIS W/O OBSTRUCTION Status: Acute Current Visit: Yes (3) CAD (coronary artery disease) SNOMED Code(s): 37648720 Code(s): I25.10 - ATHSCL HEART DISEASE OF [place] CORONARY ARTERY W/O ANG PCTRS Status: Chronic Current Visit: Yes Qualifiers: Associated angina: without angina (4) Dementia SNOMED Code(s): 16814058 Code(s): F03.90 - UNSPECIFIED DEMENTIA WITHOUT BEHAVIORAL DISTURBANCE Status: Chronic Current Visit: Yes Qualifiers: Dementia type: Alzheimer's disease Dementia behavioral disturbance: without behavioral disturbance (5) GERD (gastroesophageal reflux disease) SNOMED Code(s): 868055815 Code(s): K21.9 - GASTRO-ESOPHAGEAL REFLUX DISEASE WITHOUT ESOPHAGITIS Status: Acute Current Visit: No Qualifiers: Esophagitis presence: esophagitis presence not specified Qualified Code(s) : K21.9 - Gastro-esophageal reflux disease without esophagitis Annotation/Comment:: Continue Pepcid bid and maintenance meds. (6) Hypothyroidism SNOMED Code(s): 51293357 Code(s): E03.9 - HYPOTHYROIDISM, UNSPECIFIED Status: Chronic Current Visit: No (7) Elevated troponin SNOMED Code(s): 813527980, 360737137, 987088277 Code(s): R74.8 - ABNORMAL LEVELS OF OTHER SERUM ENZYMES Status: Acute Current Visit: Yes (8) HTN (hypertension) SNOMED Code(s): 19864516 Code(s): I10 - ESSENTIAL (PRIMARY) HYPERTENSION Status: Chronic Current Visit: Yes Qualifiers: Hypertension type: essential hypertension Qualified Code(s): I10 - Essential (primary) hypertension (9) BPH (benign prostatic hyperplasia) SNOMED Code(s): 973371762 Code(s): N40.0 - BENIGN PROSTATIC HYPERPLASIA WITHOUT LOWER URINRY TRACT SYMP Status: Chronic Current Visit: Yes (10) Leukocytosis SNOMED Code(s): 412496816, 447271956 Code(s): D72.829 - ELEVATED WHITE BLOOD CELL COUNT, UNSPECIFIED Status: Acute Current Visit: Yes Qualifiers: Leukocytosis type: unspecified Qualified Code(s): D72.829 - Elevated white blood cell count, unspecified - Problem List Review Problem List Initiated/Reviewed/Updated: Yes - My Orders Last 24 Hours: My Active Orders 07/21/19 08:59 Abdomen Pelvis w Cont [CT] Routine 07/21/19 09:00 Pantoprazole [ProTONIX IV] 40 mg IVPUSH DAILY Sodium Chloride 0.9% [Normal Saline] 1,000 ml IV ASDIRECTED 07/21/19 11:30 Sucralfate [Carafate] 1 gm PO QIDACANDBED 07/21/19 11:45 Finasteride [Proscar] 5 mg PO DAILY Metoprolol Tartrate [Lopressor] 50 mg PO BID dexAMETHasone [Decadron 0.1% Ophth Soln] 0 ml EYEBOTH DAILY 07/21/19 12:00 Carboxymethylcellulose Sodium [Refresh Tears 0.5%] 0 ml EYEBOTH Q3H 07/21/19 21:00 Carboxymethylcellulose Sodium [Refresh Liquigel 1%] 0 ml EYEBOTH BEDTIME Donepezil [Aricept] 10 mg PO BEDTIME Lisinopril [Prinivil] 10 mg PO BEDTIME 07/21/19 Lunch Clear Liquid Diet [DIET] - Plan Plan:: I spoke with DR Chatterjee. She recommended no emergent surgery,but an NG Tube. Perhaps consult; her on an ambulatory basis.
[2019-07-22] MEDS: METOPROLOL TARTRATE 50 MG PO SCH ×2 (08:25→20:04)
[2019-07-22] MEDS: FINASTERIDE 5 MG PO SCH (08:27)
[2019-07-22] MEDS: DEXAMETHASONE 0.1% EYEBOTH SCH (08:31)
[2019-07-22] MEDS ORDERED: Lidocaine 2% HCl 6 ML JEL.PF.APP STA (09:31)
[2019-07-22] MEDS: Sodium Chloride 0.9% 1,000 ML IV SCH ×2 (13:14)
[2019-07-22] MEDS ORDERED: cloNIDine 0.1 MG Tab PO ONE (18:46)
[2019-07-22] MEDS: Donepezil 10 MG Tab PO SCH (20:04)
[2019-07-22] MEDS: [UNRECOGNIZED DRUG - OTHER] EYEBOTH SCH (20:05)
[2019-07-22] MEDS ORDERED: Metoclopramide 10 MG/2 ML SDV IVPUSH ONE (22:48)
[2019-07-22] MEDS: Sodium Chloride 0.9% 10 ML Syringe FLUSH PRN (23:18)
[2019-07-23] MEDS: Sodium Chloride 0.9% 1,000 ML IV SCH (02:54)
[2019-07-23] MEDS: [UNRECOGNIZED DRUG - OTHER] EYEBOTH SCH ×2 (03:30→06:44)
[2019-07-23] MEDS ORDERED: Ondansetron 4 MG/2 ML SDV IVPUSH ONE (05:28)
[2019-07-23] MEDS ORDERED: Pantoprazole 40 MG Vial IVPUSH ONE (06:15)
[2019-07-23] MEDS: Nitroglycerin 0.4 MG Tab.SL SL ONE ×2 (06:20→06:43)
[2019-07-23] MEDS ORDERED: Sodium Chloride 0.9% 500 ML IV ONE (06:25)
[2019-07-23] MEDS ORDERED: Heparin Sodium/0.45% NaCl 25,000 UNITS/500 ML BAG IV SCH (07:15)
[2019-07-23] MEDS ORDERED: Levofloxacin/Dextrose 5%-Water 500 MG in Premix Bag 1 BAG IV STA (07:16)
[2019-07-23] MEDS ORDERED: Clopidogrel 75 MG Tab PO ONE (08:20)
--- NOTE | 2019-07-23 08:30 | PCM.PN ---
- General Info Date of Service: 07/23/19 Subjective Update: Overnight Suhas became diaphoretic and complained of severe epigastric pain. He was vomiting and looked pale. He was transferred to the ICU, where he was started on respiratory support via non rebreather mask. His EKG was nondiagnostic but his troponin came back at 1.1. A chest x-ray done at the time also revealed a new left lower lobe infiltrate. of note,Yesterday we attempted an NG tube that was not tolerated. There was about a liter of fluid, clear was drained. The gastric pain this morning upon my exam is mild. He denies any chest pain and has had no fever or chills. - Review of Systems HEENT: Reports: No Symptoms Genitourinary: Reports: No Symptoms Musculoskeletal: Reports: No Symptoms - Patient Data Vitals - Most Recent: Last Vital Signs Temp 99.2 F 07/23/19 04:00 Pulse 99 07/23/19 06:23 Resp 31 H 07/23/19 06:23 BP 126/59 L 07/23/19 06:43 Pulse Ox 90 L 07/23/19 06:23 Weight - Most Recent: 83.28 kg Lab Results Last 24 Hours: Laboratory Results - last 24 hr 07/23/19 07/23/19 07/23/19 Range/Units 06:24 06:24 06:24 WBC 20.3 H (4.5-12.0) X10-3/uL RBC 4.66 (4.30-5.75) x10(6)uL Hgb 14.1 (13.5-17.8) g/dL Hct 41.9 (30.0-51.3) % MCV 90.0 (80-96) fL MCH 30.3 (27.7-33.6) pg MCHC 33.6 (32.2-35.4) g/dL RDW 12.4 (11.5-15.5) % Plt Count 230 (125-369) X10(3)uL MPV 8.6 (7.4-10.4) fL Add Manual Diff Yes Neutrophils % (Manual) 95 H (46-82) % Band Neutrophils % 3 (0-6) % Monocytes % (Manual) 2 L (4-12) % D-Dimer, Quantitative (0.0-0.59) mg/LFEU Sodium 135 (135-145) mmol/L Potassium 3.8 (3.5-5.3) mmol/L Chloride 101 (100-110) mmol/L Carbon Dioxide 22 (21-32) mmol/L BUN 23 H (7-18) mg/dL Creatinine 1.2 (0.70-1.30) mg/dL Est Cr Clr Drug Dosing 39.14 mL/min Estimated GFR (MDRD) 57 L (>60) BUN/Creatinine Ratio 19.2 (9-20) Glucose 148 H (80-116) mg/dL Lactic Acid (0.4-2.2) mmol/L Calcium 8.5 L (8.6-10.2) mg/dL Troponin I 1.165 H* (<0.017-0.056) ng/mL NT-Pro-B Natriuret Pep (<=450) pg/mL 07/23/19 07/23/19 07/23/19 Range/Units 06:24 06:24 06:52 WBC (4.5-12.0) X10-3/uL RBC (4.30-5.75) x10(6)uL Hgb (13.5-17.8) g/dL Hct (30.0-51.3) % MCV (80-96) fL MCH (27.7-33.6) pg MCHC (32.2-35.4) g/dL RDW (11.5-15.5) % Plt Count (125-369) X10(3)uL MPV (7.4-10.4) fL Add Manual Diff Neutrophils % (Manual) (46-82) % Band Neutrophils % (0-6) % Monocytes % (Manual) (4-12) % D-Dimer, Quantitative 1.72 H (0.0-0.59) mg/LFEU Sodium (135-145) mmol/L Potassium (3.5-5.3) mmol/L Chloride (100-110) mmol/L Carbon Dioxide (21-32) mmol/L BUN (7-18) mg/dL Creatinine (0.70-1.30) mg/dL Est Cr Clr Drug Dosing mL/min Estimated GFR (MDRD) (>60) BUN/Creatinine Ratio (9-20) Glucose (80-116) mg/dL Lactic Acid 2.3 H (0.4-2.2) mmol/L Calcium (8.6-10.2) mg/dL Troponin I (<0.017-0.056) ng/mL NT-Pro-B Natriuret Pep 3292 H* (<=450) pg/mL Med Orders - Current: Current Medications Artificial Tears (Refresh Liquigel 1%) 0 ml EYEBOTH BEDTIME [facility] Last Admin: 07/22/19 20:05 Dose: 1 drop Artificial Tears (Refresh Tears 0.5%) 0 ml EYEBOTH Q3H [facility] Last Admin: 07/23/19 06:44 Dose: Not Given Aspirin (Ecotrin) 325 mg PO DAILY [facility] Clopidogrel Bisulfate (Plavix) 300 mg PO ONETIME ONE Stop: 07/23/19 08:21 Dexamethasone (Decadron 0.1% Ophth Soln) 0 ml EYEBOTH DAILY [facility] Last Admin: 07/22/19 08:31 Dose: 1 drop Donepezil HCl (Aricept) 10 mg PO BEDTIME [facility] Last Admin: 07/22/19 20:04 Dose: 10 mg Enoxaparin Sodium (Lovenox) 80 mg SUBCUT Q12H [facility] Finasteride (Proscar) 5 mg PO DAILY [facility] Last Admin: 07/22/19 08:27 Dose: 5 mg Ampicillin Sodium/Sulbactam (Sodium 3 gm/ Sodium Chloride) 100 mls @ 100 mls/ hr IV Q6HR [facility] Lisinopril (Prinivil) 10 mg PO BEDTIME [facility] Last Admin: 07/22/19 20:05 Dose: 10 mg Pantoprazole Sodium (Protonix Iv) 40 mg IVPUSH DAILY [facility] Last Admin: 07/22/19 08:12 Dose: 40 mg Promethazine HCl (Phenergan) 25 mg PO Q6H PRN PRN Reason: nausea, able to take PO Last Admin: 07/21/19 09:47 Dose: 25 mg Sodium Chloride (Saline Flush) 10 ml FLUSH ASDIRECTED PRN PRN Reason: Keep Vein Open Last Admin: 07/22/19 23:18 Dose: 10 ml Sucralfate (Carafate) 1 gm PO QIDACANDBED [facility] Last Admin: 07/22/19 20:04 Dose: 1 gm Discontinued Medications Clonidine HCl (Catapres) 0.1 mg PO ONETIME ONE Stop: 07/21/19 04:13 Last Admin: 07/21/19 04:16 Dose: 0.1 mg Clonidine HCl (Catapres) 0.1 mg PO ONETIME ONE Stop: 07/22/19 18:47 Last Admin: 07/22/19 19:53 Dose: 0.1 mg Al Hydroxide/Mg Hydroxide 15 (ml/ Lidocaine HCl 15 ml) 0 ml PO ONETIME STA Stop: 07/21/19 02:53 Last Admin: 07/21/19 03:18 Dose: 15 ml Sodium Chloride (Normal Saline) 1,000 mls @ 75 mls/hr IV ASDIRECTED [facility] Last Infusion: 07/23/19 06:57 Dose: 75 mls/hr Sodium Chloride (Normal Saline) 500 mls @ 999 mls/hr IV .BOLUS ONE Stop: 07/23/19 06:55 Last Admin: 07/23/19 06:59 Dose: Not Given Heparin Sodium/Sodium Chloride (Heparin 25,000 Units In 1/2 Ns 500 Ml) 25,000 units in 500 mls @ 19.987 mls/hr IV TITRATE [facility]; Protocol Levofloxacin/Dextrose 500 mg/ (Premix) 100 mls @ 100 mls/hr IV ONETIME STA Stop: 07/23/19 08:15 Last Admin: 07/23/19 07:21 Dose: 100 mls/hr Iopamidol (Isovue-370 (76%)) 94 ml IV . DIRECTED ONE Stop: 07/21/19 12:21 Last Admin: 07/21/19 12:42 Dose: 94 ml Lidocaine HCl (Glydo) 6 ml .XX ONETIME STA Stop: 07/22/19 09:32 Last Admin: 07/22/19 09:57 Dose: 6 ml Metoclopramide HCl (Reglan) 10 mg IVPUSH ONETIME ONE Stop: 07/21/19 06:25 Last Admin: 07/21/19 06:33 Dose: 10 mg Metoclopramide HCl (Reglan) 10 mg IVPUSH ONETIME ONE Stop: 07/22/19 22:49 Last Admin: 07/22/19 23:17 Dose: 10 mg Metoprolol Tartrate (Lopressor) 50 mg PO BID [facility] Last Admin: 07/22/19 20:04 Dose: 50 mg Nitroglycerin (Nitrostat) 0.4 mg SL ONETIME ONE Stop: 07/23/19 06:47 Last Admin: 07/23/19 06:43 Dose: 0.4 mg Ondansetron HCl (Zofran Odt) 8 mg PO ONETIME ONE Stop: 07/21/19 02:53 Last Admin: 07/21/19 03:17 Dose: 8 mg Ondansetron HCl (Zofran) 8 mg IVPUSH ONETIME ONE Stop: 07/23/19 05:29 Last Admin: 07/23/19 05:45 Dose: 8 mg Pantoprazole Sodium (Protonix Iv) 40 mg IVPUSH ONETIME ONE Stop: 07/23/19 06:16 Last Admin: 07/23/19 07:03 Dose: 40 mg - Exam Quality Assessment: Supplemental Oxygen General: Alert, Oriented Neck: Supple Lungs: Decreased Breath Sounds, Crackles, Rales Cardiovascular: Regular Rate GI/Abdominal Exam: Soft, Tender (epigastrium) Extremities: Normal Inspection, Non-Tender Skin: Warm Neurological: No New Focal Deficit Psy/Mental Status: Alert, Normal Affect EKG INTERPRETATION Rhythm: NSR ST-T: Depressed QT: Normal - Problem List & Annotations (1) NSTEMI (non-ST elevated myocardial infarction) SNOMED Code(s): 04552194 Code(s): I21.4 - NON-ST ELEVATION (NSTEMI) MYOCARDIAL INFARCTION Status: Acute Current Visit: Yes (2) Pneumonia SNOMED Code(s): 794692219 Code(s): J18.9 - PNEUMONIA, UNSPECIFIED ORGANISM Status: Acute Current Visit: Yes Qualifiers: Pneumonia type: due to unspecified organism (3) Gall stones SNOMED Code(s): 344767000 Code(s): K80.20 - CALCULUS OF GALLBLADDER W/O CHOLECYSTITIS W/O OBSTRUCTION Status: Acute Current Visit: Yes (4) CAD (coronary artery disease) SNOMED Code(s): 60684558 Code(s): I25.10 - ATHSCL HEART DISEASE OF [place] CORONARY ARTERY W/O ANG PCTRS Status: Chronic Current Visit: Yes Qualifiers: Associated angina: without angina (5) Dementia SNOMED Code(s): 65540164 Code(s): F03.90 - UNSPECIFIED DEMENTIA WITHOUT BEHAVIORAL DISTURBANCE Status: Chronic Current Visit: Yes Qualifiers: Dementia type: Alzheimer's disease Dementia behavioral disturbance: without behavioral disturbance (6) GERD (gastroesophageal reflux disease) SNOMED Code(s): 736885812 Code(s): K21.9 - GASTRO-ESOPHAGEAL REFLUX DISEASE WITHOUT ESOPHAGITIS Status: Acute Current Visit: No Qualifiers: Esophagitis presence: esophagitis presence not specified Qualified Code(s) : K21.9 - Gastro-esophageal reflux disease without esophagitis Annotation/Comment:: Continue Pepcid bid and maintenance meds. (7) Hypothyroidism SNOMED Code(s): 83999378 Code(s): E03.9 - HYPOTHYROIDISM, UNSPECIFIED Status: Chronic Current Visit: No (8) Elevated troponin SNOMED Code(s): 925084111, 315240066, 853037251 Code(s): R74.8 - ABNORMAL LEVELS OF OTHER SERUM ENZYMES Status: Acute Current Visit: Yes (9) HTN (hypertension) SNOMED Code(s): 39601427 Code(s): I10 - ESSENTIAL (PRIMARY) HYPERTENSION Status: Chronic Current Visit: Yes Qualifiers: Hypertension type: essential hypertension Qualified Code(s): I10 - Essential (primary) hypertension (10) BPH (benign prostatic hyperplasia) SNOMED Code(s): 927908750 Code(s): N40.0 - BENIGN PROSTATIC HYPERPLASIA WITHOUT LOWER URINRY TRACT SYMP Status: Chronic Current Visit: Yes (11) Leukocytosis SNOMED Code(s): 068416786, 852306619 Code(s): D72.829 - ELEVATED WHITE BLOOD CELL COUNT, UNSPECIFIED Status: Acute Current Visit: Yes Qualifiers: Leukocytosis type: unspecified Qualified Code(s): D72.829 - Elevated white blood cell count, unspecified (12) Palliative care encounter SNOMED Code(s): 178470488 Code(s): Z51.5 - ENCOUNTER FOR PALLIATIVE CARE Status: Acute Current Visit: Yes - Problem List Review Problem List Initiated/Reviewed/Updated: Yes - My Orders Last 24 Hours: My Active Orders 07/22/19 08:24 Abdomen 1V Flat [CR] Stat 07/22/19 09:00 NG [Nasogastric Orogastric Tube Insertion] [OM.PC] Routine 07/23/19 08:20 Clopidogrel [Plavix] 300 mg PO ONETIME ONE 07/23/19 08:30 Ampicillin/Sulbactam Na [Unasyn] 3 gm Sodium Chloride 0.9% [Normal Saline] 100 ml IV Q6HR Enoxaparin [Lovenox] 80 mg SUBCUT Q12H 07/23/19 09:00 Aspirin [Ecotrin] 325 mg PO DAILY 07/24/19 05:11 CBC WITH AUTO DIFF [HEME] AM COMPREHENSIVE METABOLIC PN,CMP [CHEM] AM PRO B-TYPE NATRIUR PEPT,BNPPRO [CHEM] DAILY TROPONIN I [CHEM] AM 07/25/19 05:11 PRO B-TYPE NATRIUR PEPT,BNPPRO [CHEM] DAILY - Plan Plan:: Along with respiratory support, I started Lovenox,Plavix and aspirin. I discontinued metoprolol because of his low blood pressure. I spoke with the family who have decided not to pursue transportation to [place] choosing rather to medically manage his acute [place], and pneumonia. The pneumonia is likely due to community acquired or aspiration .I have chosen Unasyn for treatment. Repeat labs in the morning. I'll encourage clear liquid diet to see these able to tolerate it for nutrition support.
[2019-07-23] MEDS ORDERED: Furosemide 20 MG/2 ML VIAL IVPUSH ONE ×3 (08:50→18:12)
[2019-07-23] MEDS: Ampicillin/Sulbactam Na 3 GM in Sodium Chloride 0.9% 100 ML IV SCH ×3 (08:51→20:49)
[2019-07-23] MEDS: Aspirin 325 MG Tab.EC PO SCH (09:01)
[2019-07-23] MEDS: Carboxymethylcellulose 0.5%/Glycerin 0.9% Ophth Soln 15 ML Bottle EYEBOTH SCH ×6 (09:03→20:58)
[2019-07-23] MEDS: Enoxaparin 80 MG/0.8 ML Syringe SUBCUT SCH ×2 (09:04→20:49)
[2019-07-23] MEDS: Pantoprazole 40 MG Vial IVPUSH SCH (09:04)
[2019-07-23] MEDS: Sodium Chloride 0.9% 10 ML Syringe FLUSH PRN ×7 (09:10→21:00)
[2019-07-23] MEDS: DEXAMETHASONE 0.1% EYEBOTH SCH (09:32)
[2019-07-23] MEDS: Sucralfate Suspension 1 GM/10 ML Cup PO SCH (10:05)
[2019-07-23] MEDS: Ondansetron 4 MG/2 ML SDV IVPUSH PRN (18:18)
[2019-07-23] MEDS: [UNRECOGNIZED DRUG - OTHER] EYEBOTH SCH (20:58)
[2019-07-24] MEDS: Carboxymethylcellulose 0.5%/Glycerin 0.9% Ophth Soln 15 ML Bottle EYEBOTH SCH ×8 (02:20→21:06)
[2019-07-24] MEDS: Ampicillin/Sulbactam Na 3 GM in Sodium Chloride 0.9% 100 ML IV SCH ×4 (02:52→21:05)
[2019-07-24] MEDS: Pantoprazole 40 MG Vial IVPUSH SCH (08:35)
[2019-07-24] MEDS: Sodium Chloride 0.9% 10 ML Syringe FLUSH PRN ×5 (08:41→21:00)
[2019-07-24] MEDS: Aspirin 325 MG Tab.EC PO SCH (08:45)
--- NOTE | 2019-07-24 09:06 | PCM.PN ---
- General Info Date of Service: 07/24/19 Subjective Update: M has had vomiting and unable to tolerate much oral intake. Otherwise his clinical status is slightly improved since yesterday, with increased urine output and better respiratory status. No fevers been reported. - Review of Systems HEENT: Reports: No Symptoms Pulmonary: Reports: Cough, Sputum Gastrointestinal: Reports: Decreased Appetite, Vomiting Genitourinary: Reports: No Symptoms Musculoskeletal: Reports: No Symptoms - Patient Data Vitals - Most Recent: Last Vital Signs Temp 97.7 F 07/24/19 04:00 Pulse 80 07/24/19 04:00 Resp 21 H 07/24/19 04:00 BP 127/50 L 07/24/19 04:00 Pulse Ox 92 L 07/24/19 04:00 Weight - Most Recent: 83.28 kg I&O - Last 24 Hours: Intake & Output 07/23/19 07/24/19 07/24/19 22:59 06:59 14:59 Intake Total 248 296 Output Total 550 200 Balance -302 96 Lab Results Last 24 Hours: Laboratory Results - last 24 hr 07/24/19 07/24/19 07/24/19 Range/Units 06:30 06:30 06:30 WBC 13.4 H (4.5-12.0) X10-3/uL RBC 4.26 L (4.30-5.75) x10(6)uL Hgb 12.9 L (13.5-17.8) g/dL Hct 38.6 (30.0-51.3) % MCV 90.6 (80-96) fL MCH 30.3 (27.7-33.6) pg MCHC 33.4 (32.2-35.4) g/dL RDW 12.8 (11.5-15.5) % Plt Count 186 (125-369) X10(3)uL MPV 8.7 (7.4-10.4) fL Neut % (Auto) 90.9 H (46-82) % Lymph % (Auto) 4.0 L (13-37) % [place] % (Auto) 4.8 (4-12) % Eos % (Auto) 0 L (1.0-5.0) % Baso % (Auto) 0 (0-2) % Neut # (Auto) 12.3 H (1.6-8.3) # Lymph # (Auto) 0.5 L (0.6-5.0) # [place] # (Auto) 0.6 (0.0-1.3) # Eos # (Auto) 0.0 (0.0-0.8) # Baso # (Auto) 0.0 (0.0-0.2) # Sodium 136 (135-145) mmol/L Potassium 3.7 (3.5-5.3) mmol/L Chloride 101 (100-110) mmol/L Carbon Dioxide 27 (21-32) mmol/L BUN 32 H (7-18) mg/dL Creatinine 1.4 H (0.70-1.30) mg/dL Est Cr Clr Drug Dosing 33.55 mL/min Estimated GFR (MDRD) 48 L (>60) BUN/Creatinine Ratio 22.9 H (9-20) Glucose 129 H (80-116) mg/dL Calcium 8.2 L (8.6-10.2) mg/dL Total Bilirubin 0.4 (0.1-1.3) mg/dL AST 34 H D (5-25) IU/L ALT 23 D (12-36) U/L Alkaline Phosphatase 54 L (56-112) IU/L Troponin I 0.886 H* (<0.017-0.056) ng/mL NT-Pro-B Natriuret Pep 2721 H* (<=450) pg/mL Total Protein 5.8 L (6.0-8.0) g/dL Albumin 2.4 L (3.2-4.6) g/dL Globulin 3.4 g/dL Albumin/Globulin Ratio 0.7 [place] Results Last 24 Hours: Microbiology 07/23/19 07:05 Aerobic Blood Culture - Preliminary Blood - Venous NO GROWTH AFTER 1 DAY Anaerobic Blood Culture - Preliminary NO GROWTH AFTER 1 DAY 07/23/19 07:15 Aerobic Blood Culture - Preliminary Blood - Venous - Lab Draw NO GROWTH AFTER 1 DAY Anaerobic Blood Culture - Preliminary NO GROWTH AFTER 1 DAY Med Orders - Current: Current Medications Artificial Tears (Refresh Liquigel 1%) 0 ml EYEBOTH BEDTIME [facility] Last Admin: 07/23/19 20:58 Dose: 1 drop Aspirin (Ecotrin) 325 mg PO DAILY [facility] Last Admin: 07/24/19 08:45 Dose: 325 mg Carboxymethylcellulose (Refresh Optive) 0 ml EYEBOTH Q3H [facility] Last Admin: 07/24/19 06:17 Dose: 1 drop Dexamethasone (Decadron 0.1% Ophth Soln) 0 ml EYEBOTH DAILY [facility] Last Admin: 07/23/19 09:32 Dose: 1 drop Enoxaparin Sodium (Lovenox) 80 mg SUBCUT Q12H [facility] Last Admin: 07/23/19 20:49 Dose: 80 mg Ampicillin Sodium/Sulbactam (Sodium 3 gm/ Sodium Chloride) 100 mls @ 100 mls/ hr IV Q6H [facility] Last Admin: 07/24/19 02:52 Dose: 100 mls/hr Morphine Sulfate (Morphine) 4 mg IVPUSH Q4H PRN PRN Reason: Dyspnea Last Admin: 07/23/19 18:29 Dose: 4 mg Ondansetron HCl (Zofran) 4 mg IVPUSH Q6H PRN PRN Reason: Nausea/Vomiting Last Admin: 07/23/19 18:18 Dose: 4 mg Pantoprazole Sodium (Protonix Iv) 40 mg IVPUSH DAILY [facility] Last Admin: 07/24/19 08:35 Dose: 40 mg Sodium Chloride (Saline Flush) 10 ml FLUSH ASDIRECTED PRN PRN Reason: Keep Vein Open Last Admin: 07/24/19 08:41 Dose: 10 ml Discontinued Medications Artificial Tears (Refresh Liquigel 1%) 0 ml EYEBOTH BEDTIME [facility] Last Admin: 07/22/19 20:05 Dose: 1 drop Artificial Tears (Refresh Tears 0.5%) 0 ml EYEBOTH Q3H [facility] Last Admin: 07/23/19 06:44 Dose: Not Given Clonidine HCl (Catapres) 0.1 mg PO ONETIME ONE Stop: 07/21/19 04:13 Last Admin: 07/21/19 04:16 Dose: 0.1 mg Clonidine HCl (Catapres) 0.1 mg PO ONETIME ONE Stop: 07/22/19 18:47 Last Admin: 07/22/19 19:53 Dose: 0.1 mg Clopidogrel Bisulfate (Plavix) 300 mg PO ONETIME ONE Stop: 07/23/19 08:21 Last Admin: 07/23/19 09:00 Dose: 300 mg Al Hydroxide/Mg Hydroxide 15 (ml/ Lidocaine HCl 15 ml) 0 ml PO ONETIME STA Stop: 07/21/19 02:53 Last Admin: 07/21/19 03:18 Dose: 15 ml Dexamethasone (Decadron 0.1% Ophth Soln) 0 ml EYEBOTH DAILY PATTI Last Admin: 07/22/19 08:31 Dose: 1 drop Donepezil HCl (Aricept) 10 mg PO BEDTIME [facility] Last Admin: 07/22/19 20:04 Dose: 10 mg Finasteride (Proscar) 5 mg PO DAILY PATTI Last Admin: 07/22/19 08:27 Dose: 5 mg Furosemide (Lasix) 10 mg IVPUSH NOW ONE Stop: 07/23/19 08:51 Last Admin: 07/23/19 09:07 Dose: 10 mg Furosemide (Lasix) 20 mg IVPUSH NOW ONE Stop: 07/23/19 14:46 Last Admin: 07/23/19 14:44 Dose: 20 mg Furosemide (Lasix) 20 mg IVPUSH ONETIME ONE Stop: 07/23/19 18:13 Last Admin: 07/23/19 18:25 Dose: 20 mg Sodium Chloride (Normal Saline) 1,000 mls @ 75 mls/hr IV ASDIRECTED PATTI Last Infusion: 07/23/19 06:57 Dose: 75 mls/hr Sodium Chloride (Normal Saline) 500 mls @ 999 mls/hr IV .BOLUS ONE Stop: 07/23/19 06:55 Last Admin: 07/23/19 06:59 Dose: Not Given Heparin Sodium/Sodium Chloride (Heparin 25,000 Units In 1/2 Ns 500 Ml) 25,000 units in 500 mls @ 19.987 mls/hr IV TITRATE PATTI; Protocol Levofloxacin/Dextrose 500 mg/ (Premix) 100 mls @ 100 mls/hr IV ONETIME STA Stop: 07/23/19 08:15 Last Admin: 07/23/19 07:21 Dose: 100 mls/hr Iopamidol (Isovue-370 (76%)) 94 ml IV . DIRECTED ONE Stop: 07/21/19 12:21 Last Admin: 07/21/19 12:42 Dose: 94 ml Lidocaine HCl (Glydo) 6 ml .XX ONETIME STA Stop: 07/22/19 09:32 Last Admin: 07/22/19 09:57 Dose: 6 ml Lisinopril (Prinivil) 10 mg PO BEDTIME [facility] Last Admin: 07/22/19 20:05 Dose: 10 mg Metoclopramide HCl (Reglan) 10 mg IVPUSH ONETIME ONE Stop: 07/21/19 06:25 Last Admin: 07/21/19 06:33 Dose: 10 mg Metoclopramide HCl (Reglan) 10 mg IVPUSH ONETIME ONE Stop: 07/22/19 22:49 Last Admin: 07/22/19 23:17 Dose: 10 mg Metoprolol Tartrate (Lopressor) 50 mg PO BID [facility] Last Admin: 07/22/19 20:04 Dose: 50 mg Nitroglycerin (Nitrostat) 0.4 mg SL ONETIME ONE Stop: 07/23/19 06:47 Last Admin: 07/23/19 06:43 Dose: 0.4 mg Ondansetron HCl (Zofran Odt) 8 mg PO ONETIME ONE Stop: 07/21/19 02:53 Last Admin: 07/21/19 03:17 Dose: 8 mg Ondansetron HCl (Zofran) 8 mg IVPUSH ONETIME ONE Stop: 07/23/19 05:29 Last Admin: 07/23/19 05:45 Dose: 8 mg Pantoprazole Sodium (Protonix Iv) 40 mg IVPUSH ONETIME ONE Stop: 07/23/19 06:16 Last Admin: 07/23/19 07:03 Dose: 40 mg Promethazine HCl (Phenergan) 25 mg PO Q6H PRN PRN Reason: nausea, able to take PO Last Admin: 07/21/19 09:47 Dose: 25 mg Sucralfate (Carafate) 1 gm PO QIDACANDBED [facility] Last Admin: 07/23/19 10:05 Dose: Not Given - Exam Quality Assessment: Supplemental Oxygen General: Alert, Cooperative HEENT: Pupils Equal Neck: Supple Lungs: Crackles, Rales Cardiovascular: Regular Rate GI/Abdominal Exam: Soft Extremities: No Pedal Edema - Problem List & Annotations (1) NSTEMI (non-ST elevated myocardial infarction) SNOMED Code(s): 40724898 Code(s): I21.4 - NON-ST ELEVATION (NSTEMI) MYOCARDIAL INFARCTION Status: Acute Current Visit: Yes (2) Pneumonia SNOMED Code(s): 598524894 Code(s): J18.9 - PNEUMONIA, UNSPECIFIED ORGANISM Status: Acute Current Visit: Yes Qualifiers: Pneumonia type: due to unspecified organism (3) Gall stones SNOMED Code(s): 098714009 Code(s): K80.20 - CALCULUS OF GALLBLADDER W/O CHOLECYSTITIS W/O OBSTRUCTION Status: Acute Current Visit: Yes (4) CAD (coronary artery disease) SNOMED Code(s): 91797090 Code(s): I25.10 - ATHSCL HEART DISEASE OF [place] CORONARY ARTERY W/O ANG PCTRS Status: Chronic Current Visit: Yes Qualifiers: Associated angina: without angina (5) Dementia SNOMED Code(s): 28899597 Code(s): F03.90 - UNSPECIFIED DEMENTIA WITHOUT BEHAVIORAL DISTURBANCE Status: Chronic Current Visit: Yes Qualifiers: Dementia type: Alzheimer's disease Dementia behavioral disturbance: without behavioral disturbance (6) GERD (gastroesophageal reflux disease) SNOMED Code(s): 214537868 Code(s): K21.9 - GASTRO-ESOPHAGEAL REFLUX DISEASE WITHOUT ESOPHAGITIS Status: Acute Current Visit: No Qualifiers: Esophagitis presence: esophagitis presence not specified Qualified Code(s) : K21.9 - Gastro-esophageal reflux disease without esophagitis Annotation/Comment:: Continue Pepcid bid and maintenance meds. (7) Hypothyroidism SNOMED Code(s): 48612701 Code(s): E03.9 - HYPOTHYROIDISM, UNSPECIFIED Status: Chronic Current Visit: No (8) Elevated troponin SNOMED Code(s): 709951723, 797825190, 962514354 Code(s): R74.8 - ABNORMAL LEVELS OF OTHER SERUM ENZYMES Status: Acute Current Visit: Yes (9) HTN (hypertension) SNOMED Code(s): 66902464 Code(s): I10 - ESSENTIAL (PRIMARY) HYPERTENSION Status: Chronic Current Visit: Yes Qualifiers: Hypertension type: essential hypertension Qualified Code(s): I10 - Essential (primary) hypertension (10) BPH (benign prostatic hyperplasia) SNOMED Code(s): 196258565 Code(s): N40.0 - BENIGN PROSTATIC HYPERPLASIA WITHOUT LOWER URINRY TRACT SYMP Status: Chronic Current Visit: Yes (11) Leukocytosis SNOMED Code(s): 705089082, 933332607 Code(s): D72.829 - ELEVATED WHITE BLOOD CELL COUNT, UNSPECIFIED Status: Acute Current Visit: Yes Qualifiers: Leukocytosis type: unspecified Qualified Code(s): D72.829 - Elevated white blood cell count, unspecified (12) Palliative care encounter SNOMED Code(s): 297583713 Code(s): Z51.5 - ENCOUNTER FOR PALLIATIVE CARE Status: Acute Current Visit: Yes - Problem List Review Problem List Initiated/Reviewed/Updated: Yes - My Orders Last 24 Hours: My Active Orders 07/23/19 08:30 Ampicillin/Sulbactam Na [Unasyn] 3 gm Sodium Chloride 0.9% [Normal Saline] 100 ml IV Q6H Enoxaparin [Lovenox] 80 mg SUBCUT Q12H 07/23/19 08:33 Admission Status [Patient Status] [ADT] Routine 07/23/19 08:37 Carboxymethylcellulose Sodium [Refresh Liquigel 1%] 0 ml EYEBOTH BEDTIME 07/23/19 08:48 Ondansetron [Zofran] 4 mg IVPUSH Q6H PRN 07/23/19 09:00 Aspirin [Ecotrin] 325 mg PO DAILY Carboxymethylcellulos/Glycerin [Refresh Optive] 0 ml EYEBOTH Q3H dexAMETHasone [Decadron 0.1% Ophth Soln] 0 ml EYEBOTH DAILY 07/23/19 18:12 Morphine Sulfate [Morphine] 4 mg IVPUSH Q4H PRN 07/25/19 05:11 PRO B-TYPE NATRIUR PEPT,BNPPRO [CHEM] DAILY - Plan Plan:: at this time continued IV Unasyn, Lovenox for another day, and encourage oral intake as tolerated.He not able to tolerate a nasogastric tube. I have very few ideas on how to proceed for his nutritional support. For his respiratory status, I recommend we continue Lasix IV and repeat some labs the morning.
[2019-07-24] MEDS: Enoxaparin 80 MG/0.8 ML Syringe SUBCUT SCH ×2 (09:40→21:05)
[2019-07-24] MEDS: DEXAMETHASONE 0.1% EYEBOTH SCH (09:41)
[2019-07-24] MEDS: Furosemide 20 MG/2 ML VIAL IVPUSH SCH ×2 (10:30→21:06)
[2019-07-24] MEDS: Ondansetron 4 MG/2 ML SDV IVPUSH PRN (21:06)
[2019-07-24] MEDS: [UNRECOGNIZED DRUG - OTHER] EYEBOTH SCH (21:06)
[2019-07-25] MEDS: Carboxymethylcellulose 0.5%/Glycerin 0.9% Ophth Soln 15 ML Bottle EYEBOTH SCH ×8 (01:20→21:41)
[2019-07-25] MEDS: Sodium Chloride 0.9% 10 ML Syringe FLUSH PRN ×4 (02:00→21:17)
[2019-07-25] MEDS: Ampicillin/Sulbactam Na 3 GM in Sodium Chloride 0.9% 100 ML IV SCH ×4 (02:53→21:15)
[2019-07-25] MEDS: Ondansetron 4 MG/2 ML SDV IVPUSH PRN (07:52)
[2019-07-25] MEDS: Enoxaparin 80 MG/0.8 ML Syringe SUBCUT SCH (08:28)
[2019-07-25] MEDS: Aspirin 325 MG Tab.EC PO SCH (08:52)
[2019-07-25] MEDS: DEXAMETHASONE 0.1% EYEBOTH SCH (08:52)
--- NOTE | 2019-07-25 08:56 | PCM.PN ---
- General Info Date of Service: 07/25/19 Subjective Update: Unable to torelate feeding. Vomiting Functional Status: Reports: Pain Controlled. Denies: Tolerating Diet - Review of Systems Pulmonary: Reports: Cough Genitourinary: Reports: No Symptoms Musculoskeletal: Reports: No Symptoms - Patient Data Vitals - Most Recent: Last Vital Signs Temp 98.9 F 07/25/19 08:00 Pulse 84 07/25/19 08:00 Resp 23 H 07/25/19 08:00 BP 127/53 L 07/25/19 08:00 Pulse Ox 92 L 07/25/19 08:13 Weight - Most Recent: 84.141 kg I&O - Last 24 Hours: Intake & Output 07/24/19 07/25/19 07/25/19 22:59 06:59 14:59 Intake Total 10 Output Total 500 550 Balance -500 -540 Lab Results Last 24 Hours: Laboratory Results - last 24 hr 07/25/19 07/25/19 07/25/19 Range/Units 06:10 06:10 06:10 WBC 10.1 (4.5-12.0) X10-3/uL RBC 4.10 L (4.30-5.75) x10(6)uL Hgb 12.6 L (13.5-17.8) g/dL Hct 37.3 (30.0-51.3) % MCV 90.9 (80-96) fL MCH 30.7 (27.7-33.6) pg MCHC 33.7 (32.2-35.4) g/dL RDW 12.5 (11.5-15.5) % Plt Count 185 (125-369) X10(3)uL MPV 8.8 (7.4-10.4) fL Neut % (Auto) 84.2 H (46-82) % Lymph % (Auto) 7.7 L (13-37) % [place] % (Auto) 7.1 (4-12) % Eos % (Auto) 1 (1.0-5.0) % Baso % (Auto) 0 (0-2) % Neut # (Auto) 8.5 H (1.6-8.3) # Lymph # (Auto) 0.8 (0.6-5.0) # [place] # (Auto) 0.7 (0.0-1.3) # Eos # (Auto) 0.1 (0.0-0.8) # Baso # (Auto) 0.0 (0.0-0.2) # Sodium 137 (135-145) mmol/L Potassium 3.3 L (3.5-5.3) mmol/L Chloride 100 (100-110) mmol/L Carbon Dioxide 30 (21-32) mmol/L BUN 36 H (7-18) mg/dL Creatinine 1.3 (0.70-1.30) mg/dL Est Cr Clr Drug Dosing 36.13 mL/min Estimated GFR (MDRD) 52 L (>60) BUN/Creatinine Ratio 27.7 H (9-20) Glucose 92 (80-116) mg/dL Calcium 8.5 L (8.6-10.2) mg/dL Total Bilirubin 0.5 (0.1-1.3) mg/dL AST 28 H D (5-25) IU/L ALT 25 (12-36) U/L Alkaline Phosphatase 58 (56-112) IU/L NT-Pro-B Natriuret Pep 1206 H* (<=450) pg/mL Total Protein 5.8 L (6.0-8.0) g/dL Albumin 2.3 L (3.2-4.6) g/dL Globulin 3.5 g/dL Albumin/Globulin Ratio 0.7 [place] Results Last 24 Hours: Microbiology 07/23/19 07:15 Aerobic Blood Culture - Preliminary Blood - Venous - Lab Draw NO GROWTH AFTER 2 DAYS Anaerobic Blood Culture - Preliminary NO GROWTH AFTER 2 DAYS 07/23/19 07:05 Aerobic Blood Culture - Preliminary Blood - Venous NO GROWTH AFTER 2 DAYS Anaerobic Blood Culture - Preliminary NO GROWTH AFTER 2 DAYS Med Orders - Current: Current Medications Artificial Tears (Refresh Liquigel 1%) 0 ml EYEBOTH BEDTIME [facility] Last Admin: 07/24/19 21:06 Dose: 1 drop Aspirin (Ecotrin) 325 mg PO DAILY [facility] Last Admin: 07/24/19 08:45 Dose: 325 mg Carboxymethylcellulose (Refresh Optive) 0 ml EYEBOTH Q3H [facility] Last Admin: 07/25/19 06:25 Dose: 1 drop Dexamethasone (Decadron 0.1% Oph Soln) 0 ml EYEBOTH DAILY [facility] Last Admin: 07/24/19 09:41 Dose: 1 drop Enoxaparin Sodium (Lovenox) 80 mg SUBCUT Q12H [facility] Last Admin: 07/24/19 21:05 Dose: 80 mg Furosemide (Lasix) 20 mg IVPUSH BID [facility] Last Admin: 07/24/19 21:06 Dose: 20 mg Ampicillin Sodium/Sulbactam (Sodium 3 gm/ Sodium Chloride) 100 mls @ 100 mls/ hr IV Q6H [facility] Last Admin: 07/25/19 02:53 Dose: 100 mls/hr Morphine Sulfate (Morphine) 4 mg IVPUSH Q4H PRN PRN Reason: Dyspnea Last Admin: 07/23/19 18:29 Dose: 4 mg Ondansetron HCl (Zofran) 4 mg IVPUSH Q6H PRN PRN Reason: Nausea/Vomiting Last Admin: 07/25/19 07:52 Dose: 4 mg Pantoprazole Sodium (Protonix Iv) 40 mg IVPUSH DAILY [facility] Last Admin: 07/24/19 08:35 Dose: 40 mg Sodium Chloride (Saline Flush) 10 ml FLUSH ASDIRECTED PRN PRN Reason: Keep Vein Open Last Admin: 07/25/19 02:00 Dose: 10 ml Discontinued Medications Artificial Tears (Refresh Liquigel 1%) 0 ml EYEBOTH BEDTIME [facility] Last Admin: 07/22/19 20:05 Dose: 1 drop Artificial Tears (Refresh Tears 0.5%) 0 ml EYEBOTH Q3H [facility] Last Admin: 07/23/19 06:44 Dose: Not Given Clonidine HCl (Catapres) 0.1 mg PO ONETIME ONE Stop: 07/21/19 04:13 Last Admin: 07/21/19 04:16 Dose: 0.1 mg Clonidine HCl (Catapres) 0.1 mg PO ONETIME ONE Stop: 07/22/19 18:47 Last Admin: 07/22/19 19:53 Dose: 0.1 mg Clopidogrel Bisulfate (Plavix) 300 mg PO ONETIME ONE Stop: 07/23/19 08:21 Last Admin: 07/23/19 09:00 Dose: 300 mg Al Hydroxide/Mg Hydroxide 15 (ml/ Lidocaine HCl 15 ml) 0 ml PO ONETIME STA Stop: 07/21/19 02:53 Last Admin: 07/21/19 03:18 Dose: 15 ml Dexamethasone (Decadron 0.1% Ophth Soln) 0 ml EYEBOTH DAILY [facility] Last Admin: 07/22/19 08:31 Dose: 1 drop Donepezil HCl (Aricept) 10 mg PO BEDTIME [facility] Last Admin: 07/22/19 20:04 Dose: 10 mg Finasteride (Proscar) 5 mg PO DAILY [facility] Last Admin: 07/22/19 08:27 Dose: 5 mg Furosemide (Lasix) 10 mg IVPUSH NOW ONE Stop: 07/23/19 08:51 Last Admin: 07/23/19 09:07 Dose: 10 mg Furosemide (Lasix) 20 mg IVPUSH NOW ONE Stop: 07/23/19 14:46 Last Admin: 07/23/19 14:44 Dose: 20 mg Furosemide (Lasix) 20 mg IVPUSH ONETIME ONE Stop: 07/23/19 18:13 Last Admin: 07/23/19 18:25 Dose: 20 mg Sodium Chloride (Normal Saline) 1,000 mls @ 75 mls/hr IV ASDIRECTED PATTI Last Infusion: 07/23/19 06:57 Dose: 75 mls/hr Sodium Chloride (Normal Saline) 500 mls @ 999 mls/hr IV .BOLUS ONE Stop: 07/23/19 06:55 Last Admin: 07/23/19 06:59 Dose: Not Given Heparin Sodium/Sodium Chloride (Heparin 25,000 Units In 1/2 Ns 500 Ml) 25,000 units in 500 mls @ 19.987 mls/hr IV TITRATE PATTI; Protocol Levofloxacin/Dextrose 500 mg/ (Premix) 100 mls @ 100 mls/hr IV ONETIME STA Stop: 07/23/19 08:15 Last Admin: 07/23/19 07:21 Dose: 100 mls/hr Iopamidol (Isovue-370 (76%)) 94 ml IV . DIRECTED ONE Stop: 07/21/19 12:21 Last Admin: 07/21/19 12:42 Dose: 94 ml Lidocaine HCl (Glydo) 6 ml .XX ONETIME STA Stop: 07/22/19 09:32 Last Admin: 07/22/19 09:57 Dose: 6 ml Lisinopril (Prinivil) 10 mg PO BEDTIME [facility] Last Admin: 07/22/19 20:05 Dose: 10 mg Metoclopramide HCl (Reglan) 10 mg IVPUSH ONETIME ONE Stop: 07/21/19 06:25 Last Admin: 07/21/19 06:33 Dose: 10 mg Metoclopramide HCl (Reglan) 10 mg IVPUSH ONETIME ONE Stop: 07/22/19 22:49 Last Admin: 07/22/19 23:17 Dose: 10 mg Metoprolol Tartrate (Lopressor) 50 mg PO BID [facility] Last Admin: 07/22/19 20:04 Dose: 50 mg Nitroglycerin (Nitrostat) 0.4 mg SL ONETIME ONE Stop: 07/23/19 06:47 Last Admin: 07/23/19 06:43 Dose: 0.4 mg Ondansetron HCl (Zofran Odt) 8 mg PO ONETIME ONE Stop: 07/21/19 02:53 Last Admin: 07/21/19 03:17 Dose: 8 mg Ondansetron HCl (Zofran) 8 mg IVPUSH ONETIME ONE Stop: 07/23/19 05:29 Last Admin: 07/23/19 05:45 Dose: 8 mg Pantoprazole Sodium (Protonix Iv) 40 mg IVPUSH ONETIME ONE Stop: 07/23/19 06:16 Last Admin: 07/23/19 07:03 Dose: 40 mg Promethazine HCl (Phenergan) 25 mg PO Q6H PRN PRN Reason: nausea, able to take PO Last Admin: 07/21/19 09:47 Dose: 25 mg Sucralfate (Carafate) 1 gm PO QIDACANDBED [facility] Last Admin: 07/23/19 10:05 Dose: Not Given - Exam Quality Assessment: Supplemental Oxygen General: Alert Lungs: Decreased Breath Sounds Cardiovascular: Regular Rate GI/Abdominal Exam: Normal Bowel Sounds, Soft - Problem List & Annotations (1) NSTEMI (non-ST elevated myocardial infarction) SNOMED Code(s): 90551451 Code(s): I21.4 - NON-ST ELEVATION (NSTEMI) MYOCARDIAL INFARCTION Status: Acute Current Visit: Yes (2) Pneumonia SNOMED Code(s): 021339900 Code(s): J18.9 - PNEUMONIA, UNSPECIFIED ORGANISM Status: Acute Current Visit: Yes Qualifiers: Pneumonia type: due to unspecified organism (3) Gall stones SNOMED Code(s): 094513643 Code(s): K80.20 - CALCULUS OF GALLBLADDER W/O CHOLECYSTITIS W/O OBSTRUCTION Status: Acute Current Visit: Yes (4) CAD (coronary artery disease) SNOMED Code(s): 95380160 Code(s): I25.10 - ATHSCL HEART DISEASE OF [place] CORONARY ARTERY W/O ANG PCTRS Status: Chronic Current Visit: Yes Qualifiers: Associated angina: without angina (5) Dementia SNOMED Code(s): 11337913 Code(s): F03.90 - UNSPECIFIED DEMENTIA WITHOUT BEHAVIORAL DISTURBANCE Status: Chronic Current Visit: Yes Qualifiers: Dementia type: Alzheimer's disease Dementia behavioral disturbance: without behavioral disturbance (6) GERD (gastroesophageal reflux disease) SNOMED Code(s): 004621288 Code(s): K21.9 - GASTRO-ESOPHAGEAL REFLUX DISEASE WITHOUT ESOPHAGITIS Status: Acute Current Visit: No Qualifiers: Esophagitis presence: esophagitis presence not specified Qualified Code(s) : K21.9 - Gastro-esophageal reflux disease without esophagitis Annotation/Comment:: Continue Pepcid bid and maintenance meds. (7) Hypothyroidism SNOMED Code(s): 88880199 Code(s): E03.9 - HYPOTHYROIDISM, UNSPECIFIED Status: Chronic Current Visit: No (8) Elevated troponin SNOMED Code(s): 146706011, 010481118, 969195309 Code(s): R74.8 - ABNORMAL LEVELS OF OTHER SERUM ENZYMES Status: Acute Current Visit: Yes (9) HTN (hypertension) SNOMED Code(s): 78832956 Code(s): I10 - ESSENTIAL (PRIMARY) HYPERTENSION Status: Chronic Current Visit: Yes Qualifiers: Hypertension type: essential hypertension Qualified Code(s): I10 - Essential (primary) hypertension (10) BPH (benign prostatic hyperplasia) SNOMED Code(s): 312280696 Code(s): N40.0 - BENIGN PROSTATIC HYPERPLASIA WITHOUT LOWER URINRY TRACT SYMP Status: Chronic Current Visit: Yes (11) Leukocytosis SNOMED Code(s): 189494014, 219020710 Code(s): D72.829 - ELEVATED WHITE BLOOD CELL COUNT, UNSPECIFIED Status: Acute Current Visit: Yes Qualifiers: Leukocytosis type: unspecified Qualified Code(s): D72.829 - Elevated white blood cell count, unspecified (12) Palliative care encounter SNOMED Code(s): 241111686 Code(s): Z51.5 - ENCOUNTER FOR PALLIATIVE CARE Status: Acute Current Visit: Yes - Problem List Review Problem List Initiated/Reviewed/Updated: Yes - My Orders Last 24 Hours: My Active Orders 07/24/19 09:15 Furosemide [Lasix] 20 mg IVPUSH BID 07/25/19 08:27 Consult to Hospice [CONS] Routine 07/25/19 Breakfast No Tray Needed Diet [DIET] - Plan Plan:: I had a discussion with Sujata, given 3 options. One transferred to [facility] for surgical consultation. 2 J-tube for feeding. 3 de-escalation of care and hospice consultation. After discussion with her brother Niels Fritz they have decided to go with option #3. Hospice consult will be placed. Transfer out ICU.
[2019-07-25] MEDS: Pantoprazole 40 MG Vial IVPUSH SCH (09:12)
[2019-07-25] MEDS: Furosemide 20 MG/2 ML VIAL IVPUSH SCH ×2 (09:12→21:16)
[2019-07-25] MEDS: [UNRECOGNIZED DRUG - OTHER] EYEBOTH SCH (21:39)
[2019-07-26] MEDS: Carboxymethylcellulose 0.5%/Glycerin 0.9% Ophth Soln 15 ML Bottle EYEBOTH SCH ×9 (00:05→23:48)
[2019-07-26] MEDS: Sodium Chloride 0.9% 10 ML Syringe FLUSH PRN ×4 (03:04→14:54)
[2019-07-26] MEDS: Ampicillin/Sulbactam Na 3 GM in Sodium Chloride 0.9% 100 ML IV SCH ×3 (03:04→15:08)
--- NOTE | 2019-07-26 08:39 | PCM.PN ---
- General Info Date of Service: 07/26/19 Subjective Update: Still unable to eat.Clinically looks better Functional Status: Reports: Pain Controlled - Review of Systems General: Reports: No Symptoms Pulmonary: Reports: Cough Cardiovascular: Reports: No Symptoms Gastrointestinal: Reports: Vomiting Genitourinary: Reports: No Symptoms Musculoskeletal: Reports: No Symptoms - Patient Data Vitals - Most Recent: Last Vital Signs Temp 99.2 F 07/26/19 00:00 Pulse 86 07/26/19 00:00 Resp 18 07/26/19 00:00 BP 108/44 L 07/26/19 00:00 Pulse Ox 87 L 07/26/19 00:00 Weight - Most Recent: 83.092 kg I&O - Last 24 Hours: Intake & Output 07/25/19 07/26/19 07/26/19 22:59 06:59 14:59 Intake Total 0 100 Output Total 500 500 Balance -500 -500 100 Eleno Results Last 24 Hours: Microbiology 07/23/19 07:05 Aerobic Blood Culture - Preliminary Blood - Venous NO GROWTH AFTER 3 DAYS Anaerobic Blood Culture - Preliminary NO GROWTH AFTER 3 DAYS 07/23/19 07:15 Aerobic Blood Culture - Preliminary Blood - Venous - Lab Draw NO GROWTH AFTER 3 DAYS Anaerobic Blood Culture - Preliminary NO GROWTH AFTER 3 DAYS Med Orders - Current: Current Medications Artificial Tears (Refresh Liquigel 1%) 0 ml EYEBOTH BEDTIME [facility] Last Admin: 07/25/19 21:39 Dose: 1 drop Aspirin (Ecotrin) 325 mg PO DAILY [facility] Last Admin: 07/25/19 08:52 Dose: 325 mg Carboxymethylcellulose (Refresh Optive) 0 ml EYEBOTH Q3H [facility] Last Admin: 07/26/19 06:19 Dose: 1 drop Dexamethasone (Decadron 0.1% [facility]) 0 ml EYEBOTH DAILY [facility] Last Admin: 07/25/19 08:52 Dose: 1 drop Furosemide (Lasix) 20 mg PO DAILY [facility] Ampicillin Sodium/Sulbactam (Sodium 3 gm/ Sodium Chloride) 100 mls @ 100 mls/ hr IV Q6H [facility] Last Admin: 07/26/19 07:32 Dose: 100 mls/hr Morphine Sulfate (Morphine) 4 mg IVPUSH Q4H PRN PRN Reason: Dyspnea Last Admin: 07/23/19 18:29 Dose: 4 mg Ondansetron HCl (Zofran) 4 mg IVPUSH Q6H PRN PRN Reason: Nausea/Vomiting Last Admin: 07/25/19 07:52 Dose: 4 mg Pantoprazole Sodium (Protonix Iv) 40 mg IVPUSH DAILY [facility] Last Admin: 07/25/19 09:12 Dose: 40 mg Sodium Chloride (Saline Flush) 10 ml FLUSH ASDIRECTED PRN PRN Reason: Keep Vein Open Last Admin: 07/26/19 07:33 Dose: 10 ml Discontinued Medications Artificial Tears (Refresh Liquigel 1%) 0 ml EYEBOTH BEDTIME PATTI Last Admin: 07/22/19 20:05 Dose: 1 drop Artificial Tears (Refresh Tears 0.5%) 0 ml EYEBOTH Q3H [facility] Last Admin: 07/23/19 06:44 Dose: Not Given Clonidine HCl (Catapres) 0.1 mg PO ONETIME ONE Stop: 07/21/19 04:13 Last Admin: 07/21/19 04:16 Dose: 0.1 mg Clonidine HCl (Catapres) 0.1 mg PO ONETIME ONE Stop: 07/22/19 18:47 Last Admin: 07/22/19 19:53 Dose: 0.1 mg Clopidogrel Bisulfate (Plavix) 300 mg PO ONETIME ONE Stop: 07/23/19 08:21 Last Admin: 07/23/19 09:00 Dose: 300 mg Al Hydroxide/Mg Hydroxide 15 (ml/ Lidocaine HCl 15 ml) 0 ml PO ONETIME STA Stop: 07/21/19 02:53 Last Admin: 07/21/19 03:18 Dose: 15 ml Dexamethasone (Decadron 0.1% [facility]) 0 ml EYEBOTH DAILY [facility] Last Admin: 07/22/19 08:31 Dose: 1 drop Donepezil HCl (Aricept) 10 mg PO BEDTIME [facility] Last Admin: 07/22/19 20:04 Dose: 10 mg Enoxaparin Sodium (Lovenox) 80 mg SUBCUT Q12H [facility] Last Admin: 07/25/19 08:28 Dose: 80 mg Finasteride (Proscar) 5 mg PO DAILY [facility] Last Admin: 07/22/19 08:27 Dose: 5 mg Furosemide (Lasix) 10 mg IVPUSH NOW ONE Stop: 07/23/19 08:51 Last Admin: 07/23/19 09:07 Dose: 10 mg Furosemide (Lasix) 20 mg IVPUSH NOW ONE Stop: 07/23/19 14:46 Last Admin: 07/23/19 14:44 Dose: 20 mg Furosemide (Lasix) 20 mg IVPUSH ONETIME ONE Stop: 07/23/19 18:13 Last Admin: 07/23/19 18:25 Dose: 20 mg Furosemide (Lasix) 20 mg IVPUSH BID PATTI Last Admin: 07/25/19 21:16 Dose: 20 mg Sodium Chloride (Normal Saline) 1,000 mls @ 75 mls/hr IV ASDIRECTED PATTI Last Infusion: 07/23/19 06:57 Dose: 75 mls/hr Sodium Chloride (Normal Saline) 500 mls @ 999 mls/hr IV .BOLUS ONE Stop: 07/23/19 06:55 Last Admin: 07/23/19 06:59 Dose: Not Given Heparin Sodium/Sodium Chloride (Heparin 25,000 Units In 1/2 Ns 500 Ml) 25,000 units in 500 mls @ 19.987 mls/hr IV TITRATE PATTI; Protocol Levofloxacin/Dextrose 500 mg/ (Premix) 100 mls @ 100 mls/hr IV ONETIME STA Stop: 07/23/19 08:15 Last Admin: 07/23/19 07:21 Dose: 100 mls/hr Iopamidol (Isovue-370 (76%)) 94 ml IV . DIRECTED ONE Stop: 07/21/19 12:21 Last Admin: 07/21/19 12:42 Dose: 94 ml Lidocaine HCl (Glydo) 6 ml .XX ONETIME STA Stop: 07/22/19 09:32 Last Admin: 07/22/19 09:57 Dose: 6 ml Lisinopril (Prinivil) 10 mg PO BEDTIME PATTI Last Admin: 07/22/19 20:05 Dose: 10 mg Metoclopramide HCl (Reglan) 10 mg IVPUSH ONETIME ONE Stop: 07/21/19 06:25 Last Admin: 07/21/19 06:33 Dose: 10 mg Metoclopramide HCl (Reglan) 10 mg IVPUSH ONETIME ONE Stop: 07/22/19 22:49 Last Admin: 07/22/19 23:17 Dose: 10 mg Metoprolol Tartrate (Lopressor) 50 mg PO BID [facility] Last Admin: 07/22/19 20:04 Dose: 50 mg Nitroglycerin (Nitrostat) 0.4 mg SL ONETIME ONE Stop: 07/23/19 06:47 Last Admin: 07/23/19 06:43 Dose: 0.4 mg Ondansetron HCl (Zofran Odt) 8 mg PO ONETIME ONE Stop: 07/21/19 02:53 Last Admin: 07/21/19 03:17 Dose: 8 mg Ondansetron HCl (Zofran) 8 mg IVPUSH ONETIME ONE Stop: 07/23/19 05:29 Last Admin: 07/23/19 05:45 Dose: 8 mg Pantoprazole Sodium (Protonix Iv) 40 mg IVPUSH ONETIME ONE Stop: 07/23/19 06:16 Last Admin: 07/23/19 07:03 Dose: 40 mg Promethazine HCl (Phenergan) 25 mg PO Q6H PRN PRN Reason: nausea, able to take PO Last Admin: 07/21/19 09:47 Dose: 25 mg Sucralfate (Carafate) 1 gm PO QIDACANDBED [facility] Last Admin: 07/23/19 10:05 Dose: Not Given - Exam Quality Assessment: Supplemental Oxygen General: Alert, Oriented Neck: Supple, Trachea Midline Lungs: Decreased Breath Sounds Cardiovascular: Regular Rate GI/Abdominal Exam: Soft - Problem List & Annotations (1) NSTEMI (non-ST elevated myocardial infarction) SNOMED Code(s): 37088674 Code(s): I21.4 - NON-ST ELEVATION (NSTEMI) MYOCARDIAL INFARCTION Status: Acute Current Visit: Yes (2) Pneumonia SNOMED Code(s): 927145220 Code(s): J18.9 - PNEUMONIA, UNSPECIFIED ORGANISM Status: Acute Current Visit: Yes Qualifiers: Pneumonia type: due to unspecified organism (3) Gall stones SNOMED Code(s): 528846820 Code(s): K80.20 - CALCULUS OF GALLBLADDER W/O CHOLECYSTITIS W/O OBSTRUCTION Status: Acute Current Visit: Yes (4) CAD (coronary artery disease) SNOMED Code(s): 06333046 Code(s): I25.10 - ATHSCL HEART DISEASE OF [place] CORONARY ARTERY W/O ANG PCTRS Status: Chronic Current Visit: Yes Qualifiers: Associated angina: without angina (5) Dementia SNOMED Code(s): 87680260 Code(s): F03.90 - UNSPECIFIED DEMENTIA WITHOUT BEHAVIORAL DISTURBANCE Status: Chronic Current Visit: Yes Qualifiers: Dementia type: Alzheimer's disease Dementia behavioral disturbance: without behavioral disturbance (6) GERD (gastroesophageal reflux disease) SNOMED Code(s): 685910993 Code(s): K21.9 - GASTRO-ESOPHAGEAL REFLUX DISEASE WITHOUT ESOPHAGITIS Status: Acute Current Visit: No Qualifiers: Esophagitis presence: esophagitis presence not specified Qualified Code(s) : K21.9 - Gastro-esophageal reflux disease without esophagitis Annotation/Comment:: Continue Pepcid bid and maintenance meds. (7) Hypothyroidism SNOMED Code(s): 97936255 Code(s): E03.9 - HYPOTHYROIDISM, UNSPECIFIED Status: Chronic Current Visit: No (8) Elevated troponin SNOMED Code(s): 717414113, 552840672, 869540154 Code(s): R74.8 - ABNORMAL LEVELS OF OTHER SERUM ENZYMES Status: Acute Current Visit: Yes (9) HTN (hypertension) SNOMED Code(s): 54061263 Code(s): I10 - ESSENTIAL (PRIMARY) HYPERTENSION Status: Chronic Current Visit: Yes Qualifiers: Hypertension type: essential hypertension Qualified Code(s): I10 - Essential (primary) hypertension (10) BPH (benign prostatic hyperplasia) SNOMED Code(s): 080238202 Code(s): N40.0 - BENIGN PROSTATIC HYPERPLASIA WITHOUT LOWER URINRY TRACT SYMP Status: Chronic Current Visit: Yes (11) Leukocytosis SNOMED Code(s): 115680306, 555414860 Code(s): D72.829 - ELEVATED WHITE BLOOD CELL COUNT, UNSPECIFIED Status: Acute Current Visit: Yes Qualifiers: Leukocytosis type: unspecified Qualified Code(s): D72.829 - Elevated white blood cell count, unspecified (12) Palliative care encounter SNOMED Code(s): 972733191 Code(s): Z51.5 - ENCOUNTER FOR PALLIATIVE CARE Status: Acute Current Visit: Yes - Problem List Review Problem List Initiated/Reviewed/Updated: Yes - My Orders Last 24 Hours: My Active Orders 07/25/19 08:27 Consult to Hospice [CONS] Routine 07/25/19 09:53 Vital Signs [RC] 08,16,00 07/25/19 11:19 Admission Status [Patient Status] [ADT] Routine 07/26/19 08:34 Remove Ingram Catheter [Urinary Catheter Removal] [RC] Per Unit Routine 07/26/19 09:00 Furosemide [Lasix] 20 mg PO DAILY - Plan Plan:: DC IV Lasix. Remove Ingram.Awaiting consult with Hospice
[2019-07-26] MEDS: DEXAMETHASONE 0.1% EYEBOTH SCH (09:05)
[2019-07-26] MEDS: Aspirin 325 MG Tab.EC PO SCH (09:15)
[2019-07-26] MEDS: Furosemide 20 MG Tab PO SCH (09:15)
[2019-07-26] MEDS: Pantoprazole 40 MG Vial IVPUSH SCH (09:21)
[2019-07-26] MEDS: [UNRECOGNIZED DRUG - OTHER] EYEBOTH SCH (20:24)
[2019-07-27] MEDS: Carboxymethylcellulose 0.5%/Glycerin 0.9% Ophth Soln 15 ML Bottle EYEBOTH SCH ×4 (02:29→12:09)
[2019-07-27] MEDS: DEXAMETHASONE 0.1% EYEBOTH SCH (08:45)
[2019-07-27] MEDS: Aspirin 325 MG Tab.EC PO SCH (08:46)
[2019-07-27] MEDS: Furosemide 20 MG Tab PO SCH (08:46)
[2019-07-27 10:08] VITALS: BP 128/68; PULSE 91
--- NOTE | 2019-07-27 11:28 | PN ---
DATE SEEN: 07/27/2019 SUBJECTIVE: Bony Benavides is an 88-year-old male seen today for followup. He has been an inpatient since 07/21/2019. He presented with complicated GI related symptoms; vomiting and nausea. 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 Medications were adjusted throughout his clinical stay with some clinical benefit. He has been on Protonix IV during his interval of care. UTI suspected, culture returned negative. He is doing a little bit better. BMP is markedly elevated 3292 to 1206. Troponins mildly elevated. O2 has been required during the hospital stay but elected to keep it on. OBJECTIVE: VITAL SIGNS: 82.372 kg, 36.9, 89, 130/61, 84, and 18. GENERAL: Appears comfortable. Speech was fluent. NECK: Benign. Thyroid small. CHEST: Clear in all lung hernández. Decreased breath sounds at both bases. HEART: Distant heart sounds with occasional ectopy. Soft murmur. ABDOMEN: Benign. Complicated reflux, diaphragmatic hernia. Plan, upper endoscopy is discussed and declined. Upper GI discussed and declined. CT showed clinical findings as noted above. Complicated upper GI symptoms. PLAN: Discharge to [facility], medications and care. Delio on board. Medications to be reviewed. /[id number] /BETY
[2019-07-27] MEDS ORDERED: Metoclopramide 5 MG Tab PO SCH (11:30)
--- NOTE | 2019-07-27 13:17 | DISCH ---
DISCHARGE DATE: 07/27/2019 REASON FOR STAY: Complicated nausea and vomiting due to large diaphragmatic hernia and gastroesophageal reflux. HISTORY OF PRESENT ILLNESS: Bony Benavides is an 88-year-old male, presented with complicated epigastric abdominal pain, nausea, and vomiting. He has had repeated visits during this time. Examination revealed stable exam. 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 There were some cystic changes in both pancreas and kidneys. Diet was advanced, moderate intake, was given IV Protonix, with moderate benefit. Discharge to home felt to be appropriate. Hospice on board. PHYSICAL EXAMINATION: VITAL SIGNS: 82.37, 36.9, 89 is the pulse, 130/61, mean blood pressure 84, respirations 18, O2 saturation 92%. GENERAL: Comfortable, appropriate. Speech was fluent. MOUTH AND OROPHARYNX: Clear. NECK: Benign. No JVD. No carotid bruits. CHEST: Clear in all lung hernández. No adventitious sounds. HEART: No ectopy or murmur. ABDOMEN: Rotund. No masses appreciated. Good peripheral pulses, sensational. ASSESSMENT: Complicated recurrent vomiting, hiatal hernia. PLAN: Endoscopy declined, upper GI decline, symptomatic treatment, Reglan on board. Medications as appropriate. Hospice to be involved. [id number], 07/27/2019 at 9 a.m., issues of vomiting, GI distress and nausea. Alteration medications, Reglan on board. I feel this is timing appropriate hospice referral generated. /[id number] ADRIÁN/BETY
== END 2019-07-27 13:05 | disposition home or self-care (01) | DRG 391 ==
LOC: FB.ED 02:37 → FB.MS 05:05 → INTOOBSV 07-23 06:25 → OBSVTOIN 07-23 06:25 → FB.MS 07-23 06:26 → FB.ICU 07-23 06:26 → FB.MS 07-23 08:34 → FB.ICU 07-23 08:34 → OBSVTOIN 07-23 08:34 → FB.MS 07-23 08:40 → FB.ICU 07-25 08:56 → FB.MS 07-25 08:56 → UNDODISIN 07-27 13:05
PROVIDERS: ADMIT Emergency Medicine; ATTEND Family Medicine
DX: K44.9 Diaphragmatic hernia without obstruction or gangrene (principal); K85.90 Acute pancreatitis without necrosis or infection, unspecified; J18.9 Pneumonia, unspecified organism; I21.4 Non-ST elevation (NSTEMI) myocardial infarction; R79.89 Other specified abnormal findings of blood chemistry; R11.2 Nausea with vomiting, unspecified; R10.13 Epigastric pain; K21.9 Gastro-esophageal reflux disease without esophagitis; I10 Essential (primary) hypertension; Z51.5 Encounter for palliative care; E66.9 Obesity, unspecified; K80.20 Calculus of gallbladder without cholecystitis without obstruction; I25.10 Atherosclerotic heart disease of native coronary artery without angina pectoris; E03.9 Hypothyroidism, unspecified; N40.0 Benign prostatic hyperplasia without lower urinary tract symptoms; E78.00 Pure hypercholesterolemia, unspecified; F03.90 Unspecified dementia, unspecified severity, without behavioral disturbance, psychotic disturbance, mood disturbance, and anxiety; Z66 Do not resuscitate; Z85.820 Personal history of malignant melanoma of skin; Z95.1 Presence of aortocoronary bypass graft; Z79.82 Long term (current) use of aspirin; Z79.899 Other long term (current) drug therapy; Z87.891 Personal history of nicotine dependence; Z68.29 Body mass index [BMI] 29.0-29.9, adult
CPT/HCPCS: 36415 ×3; 74018; 74177; 80048 ×2; 80053; 80076; 83690 ×2; 83880; 84484 ×2; 85025 ×3; 85379; 93005 ×3; 96361 ×3; 96365; 96375 ×2; 96376 ×2; 99284; 99285; A9270 ×25; C9113 ×2; G0378 ×4; J2405; J2765 ×2; J7030 ×4; Q9967; 51702; 71045; 83605; 87040; 94760; J0295; J1650; J1940; J1956; J2270